=== PATIENT | male | born 1965 | race Caucasian/White ===

== ENCOUNTER 2021-02-20 07:10 | Emergency (ER) | payer OTHER ==
[2021-02-20] MEDS ORDERED: HALDOL 0.5 MG0.5 MG PO (07:20)
[2021-02-20] MEDS ORDERED: VIMPAT200 MG PO ×2 (07:20→07:35)
[2021-02-20] MEDS ORDERED: SERTRALINE HCL25 M1 PO (07:21)
[2021-02-20] MEDS ORDERED: APAP W/CODEINE1 TA2 PO (07:21)
[2021-02-20] MEDS ORDERED: LORAZEPAM 2MG2 MG/M1 INJECTION (07:22)
[2021-02-20] MEDS ORDERED: TUMS200 MG PO (07:25)
[2021-02-20] MEDS ORDERED: ATORVASTATIN CA20 MG PO (07:26)
[2021-02-20] MEDS ORDERED: MIRTAZAPINE7.5 MG PO (07:27)
[2021-02-20] MEDS ORDERED: FUROSEMIDE 20 M20 MG PO (07:27)
[2021-02-20] MEDS ORDERED: ZYPREXA5 MG PO (07:28)
[2021-02-20] MEDS ORDERED: ASA81BEC PO (07:28)
[2021-02-20] MEDS ORDERED: LORAZEPAM 0.50.5 MG PO (07:29)
[2021-02-20] MEDS ORDERED: VITAMIN B-650 M1 PO (07:29)
[2021-02-20] MEDS ORDERED: VITAMIN D31250 MCG PO (07:30)
[2021-02-20] MEDS ORDERED: VENLAFAXINE HCL75 M1 PO (07:31)
[2021-02-20] MEDS ORDERED: KEPPRA XR500 MG PO (07:31)
[2021-02-20] MEDS ORDERED: MILK OF MA400 MG/5 M PO (07:32)
[2021-02-20] MEDS ORDERED: NAPROSYN500 MG PO (07:32)
[2021-02-20] MEDS ORDERED: FLOMAX0.4 MG PO (07:33)
[2021-02-20] MEDS ORDERED: ALPRAZOLAM XR3 MG PO (07:34)
[2021-02-20 14:16] VITALS: BP 123/66
== END 2021-02-20 14:16 ==
LOC: ER 07:10
PROVIDERS: Emergency Medicine
DX: F99 Mental disorder, not otherwise specified (principal); Z20.822 Contact with and (suspected) exposure to COVID-19; E78.5 Hyperlipidemia, unspecified; Z79.899 Other long term (current) drug therapy

== ENCOUNTER 2021-02-20 13:03 | Inpatient (IN) | payer OTHER ==
[~2021-02-20] VITALS: Ht 170.2 cm; Wt 94.8 kg
[~2021-02-20 13:03] MED LIST: ALPRAZOLAM XR3 MG PO; APAP W/CODEINE1 TA2 PO; ASA81BEC PO; ATORVASTATIN CA20 MG PO; FLOMAX0.4 MG PO; FUROSEMIDE 20 M20 MG PO; HALDOL 0.5 MG0.5 MG PO; KEPPRA XR500 MG PO; LORAZEPAM 0.50.5 MG PO; LORAZEPAM 2MG2 MG/M1 INJECTION; MILK OF MA400 MG/5 M PO; MIRTAZAPINE7.5 MG PO; NAPROSYN500 MG PO; SERTRALINE HCL25 M1 PO; TUMS200 MG PO; VENLAFAXINE HCL75 M1 PO; VIMPAT200 MG PO; VITAMIN B-650 M1 PO; VITAMIN D31250 MCG PO; ZYPREXA5 MG PO
--- NOTE | 2021-02-20 19:58 | NUR ---
Pt arrived unit at 1450 via w/c. Diagnosed with danger to self and others. pt is disoriented x4. Assessments completed, vss. Lungs clear, active bowel sound. Pt was confused, no sign of si/hi noted. No c/o pain at this time. pt was anxious and does not follow directions. No edema noted, no wounds noted. Ambulates with unsteady gait. Pt is a fall risk. Fall precaution in place. Pt was assisted with dinner by staff. Consult called to DR Andrade. Fall contract, consent to treat signed via phone by POLY Encarnacion. Medication reconciliation completed, pt belongings documented. BP 123/75, HR 77, O2, 95%, T 97.0, WEIGHT 223LB. No meds administered this shift. At this time pt is in the day room. WILL CONTINUE TO MONITOR.
--- NOTE | 2021-02-20 23:32 | NUR ---
PATIENT RESTING IN RECLINER IN COMMON AREA. PT IS ALERT TO SURROUNDINGS BUT DOES NOT PROPERLY RESPOND TO ANY QUESTIONS REGARDING ORIENTATION. PATIENT WILL NOT KEEP HIS SHIRT ON AND WILL NOT STAY SEATED IN HIS CHAIR WITHOUT FREQUENT REDIRECTION. PT IS UNABLE TO PARTICIPATE IN ANY COMMUNICATION AND SHOWS NO SIGNS THAT ANY DISCUSSIONS HAVE BEEN UNDERSTOOD. PATIENT HAS TRIED TO EAT HIS STYROFOAM CUP BEFORE STAFF WAS ABLE TO REMOVE CUP. WOODS WARDEN CAME TO ASSESS PATIENT FOR HER INITIAL EVALUATIOIN AND PATIENT AGAIN IS UNCOOPERATIVE AND UNABLE TO FOLLOW DIALOGUE. PATIENT OCCASIONALLY WILL TALK OUTLOAD TO HIMSELF BUT IT IS UNDETERMINED WHAT HE IS TALKING ABOUT. HE DOES SEEM TO BE IN A TRANCE AND REPOSNDING TO INTERNAL STIMULI. HIS VITAL SIGNS ARE STABLE AND HE DID TAKE HIS MEDICATIONS IN PUDDING. NO SIGNS OF DISTRESS NOTED AT THIS TIME. WILL CONTINUE TO MONITOR FOR CHANGE IN STATUS.
[2021-02-21 05:50] LABS: CHOLESTEROL 173 mg/dL (<200); HDL CHOLESTEROL 58 mg/dL (>40); LDL CHOLESTEROL 101 mg/dL (<100); SERUM ASSESSMENT Clear; TRIGLYCERIDE 72 mg/dL (<150); VLDL 14 mg/dL (<40)
--- NOTE | 2021-02-21 08:46 | NUR ---
02-21-2021--0845--Attempted call to POLY, patient's Anh. ([phone])--Not in. Message left to return my call to gather more information about the patient
[2021-02-21 09:27] VITALS: BP 120/71
--- NOTE | 2021-02-21 12:06 | NUR ---
02-21-2021--1205--CORRECTION TO PREVIOUS NOTE: His is his DPOA. patient's 's number is ([phone]).
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
--- NOTE | 2021-02-21 15:21 | NUR ---
PATIENT CARE ASSUMED AT 0700, PATIENT SITTING ON THE MACI/CHAIR IN THE COMMON AREA, ALERT TO SELF, PATIENT DOSE NOT RESPOND TO QUESTIONS, UNABLE TO COMMUNICATE OR FOLLOW SIMPLE DIRECTION, PATIENT IS INCONTINENT OF BLADDER AND BOWEL, ASSESSMENT COMPLETED, VSS, ACTIVE BOWEL SOUND WITH SOFT ABDOMEN, BREATH SOUND CLEAR, SKIN INTACT, NO EDEMA NOTED, PATIENT ATE MEAL WITH THE HELP OF STAFF, HE IS MAX ASSIST, IBUPROFEN PRN GIVEN FOR PAIN, NO SI/HI OBSERVED, FALL PRECATION IN PLACE, WILL CONTINUE TO MONITOR PATIENT FOR SAFETY.
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
[2021-02-22 04:06] LABS: GLYCOHEMOGLOBIN (HGB A1C) 5.7 % (4.8-5.6)
[2021-02-22 09:27] VITALS: BP 113/77
--- NOTE | 2021-02-22 09:46 | NUR ---
RESTLESS THIS AM WITH NOTED PSYCHOMOTOR AGITATION-MOVING CONSTANTLY-EITHER PUSHING SELF UP SNF DOWN IN CHAIR-TAPPING FINGERS ON TABLE-TAPPING LEGS ETC. DOES RESPOND TO VOME VERBAL COMMANDS FROM NURSING STAFF BUT ID NONVERBAL SO FAR THIS SHIFT. NO NOTED OR REPORTED S/S OF PAIN-IE NO GRIMACING OR MOANING ,VOCALIZATION OF PAIN NOTED. REQUIRES ASSIST WITH ALL ADLS INCLUDING EATIN-DID EAT 95 PERCENT OF BREAKFAST WITH STAFF ASSIST. OBSERVED TO BE HALLUCINATING -AT TINES CASTING OUT AND REELING IN IF FISHING-WILL ALSO APPEAR TO PICK OBJEVTS OFF OF TABLE-OR AIR AND PUT INTO MOUTH AND CHEW. IS NOTED TO HAVE 1-2 PLUS PEDAL EDEMAE
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
[2021-02-22 20:16] VITALS: BP 134/68
--- NOTE | 2021-02-22 23:03 | NUR ---
At onset of night club manager pt was sleeping in lazaro chair in day room. Pt recieved IM haldol and ativan during day shift. This shift pt is nonverbal. Pt did open his mouth and swallow his pills crushed in pudding, but other than this pt did not respond to staff's questions or requests. Unable to obtain good auscultation of lungs due to pt's position and lack of movement. Breathing was non-labored, regular and O2 saturation was 97%. Unable to assess SI, HI and thought process. Fall precuations are in place. Will continue to monitor for safety and behaviors.
[2021-02-23 09:30] VITALS: BP 119/86
--- NOTE | 2021-02-23 13:06 | NUR ---
PATIENT SITTING ON THE MACI/CHAIR IN THE DAY ROOM, PATIENT IS ONLY ALERT TO SELF, RESTLESS AND TRYING TO STAND UP UNASSIST, PATIENT TOOK MEDICATION CRUSHED WITH PUDDING, INCONTINENT OF BLADDER AND BOWEL BUT USES THE URINAL SOMETIMES, TOOK PATIENT TO LAY DOWN ON THE BED AFTER FIRST GROUP, HE HAD ABOUT THREE HOURS OF SLEEP AND GOT AGITATED WHEN HE GOT UP, TRYING TO CLIMB OUT OF BED, DOCTOR ORDERED LORAZEPAM IM 1MG, PATIENT ATE MEALS WITH ASSISTANCE, BREATH SOUND CLEAR, ACTIVE BOWEL SOUND WITH SOFT AND ROUNDED ABDOMEN, VSS, SKIN INTACT NO EDEMA, NO SI/HI OBSERVED, FALL PRECAUTION IN PLACE. WILL CONTINUE TO MONITOR FOR SAFETY AND BEHAVIOR.
--- NOTE | 2021-02-23 13:23 | NUR ---
HUNTER and Dr. Nicolas spoke with pt's Anh. Dr. Nicolas asked for permission to give pt more meds to slow pt down and reduce aggressive behaviors as he is in a nursing facility. She reluctantly gave her okay and said if possible, she would like for him to be somewhat mobile if possible. HUNTER emailed Anh a [facility] Welcome email. SW team will contact pt during her stay on this unit.
[2021-02-23 19:50] VITALS: BP 91/53
--- NOTE | 2021-02-24 00:08 | NUR ---
At onset of hourly shift manager pt was resting in bed asleep. Pt woke up at approx 2100 and stood up out of bed himself. Staff went to help pt to use the toilet but pt urinated on the bathroom floor instead and had a bowel movement in his brief. It took 4 staff to hold patient so that he could change into a clean brief and pants. Pt was then placed in a gerichair and positioned in the day room. Pt took his meds crushed in pudding. Pt ate a full cup of pudding for an evening snack and 10 ounces of water. Pt then fell asleep in lazaro chair. Pt was observed hallucinating; gesturing to nothing and making nonsensical statements. Unable to assess SI, HI and AVH. Pt may not be oriented to self. Does not respond to questions or prompting. Pt can be resistive to cares. Pt has a rash on the left and right side of his groin. Pt scratches this area at times. RN placed antifungal cream in that area. Pt's buttocks is red as well. Placed barrier cream on buttocks. Fall precautions are in place. Will continue to monitor.
[2021-02-24 09:44] VITALS: BP 121/72
--- NOTE | 2021-02-24 11:47 | NUR ---
PATIENT IS ALERT AND ORIENTED X3, PATIENT IS CALM, PLEASANT AND COOPERATIVE WITH CARE, PATIENT PACES ON THE FOFANA WAY BUT CALM, ASSESSMENT COMPLETED BREATH SOUND CLEAR, ACTIVE BOWEL SOUND, REG HR, VSS, NO EDEMA NOTED, SKIN INTACT, PATIENT TOOK MEDICATION WHOLE, HE AMBULATE ON A STEADY GAIT
--- NOTE | 2021-02-24 11:57 | NUR ---
PATIENT CARE ASSUMED AT 0700, PATIENT SITTING ON THE MACI/CHAIR AWAKE, ALERT TO SELF ONLY PATIENT DOSEN'T RESPOND TO QUESTIONS, HE TOOK MEDICATION CRUSHED WITH PUDDING, HE IS A MAX ASSIST, ASSESSMENT DONE WITH CLEAR BREATH SOUND, ACTIVE BOWEL SOUND WITH SOFT AND ROUNDED ABDOMEN, PATIENT HAS RED RASH ON HIS GROIN AREA, HE IS INCONTINENT OF BLADDER AND BOWEL. PATIENT EAT WITH ASSISTANCE. FALL PRECAUTION IN PLACE, WILL CONTINUE TO MONITOR FOR BEHAVIOR AND SAFETY
--- NOTE | 2021-02-24 14:33 | NUR ---
This nurse was called to the unit for this patient. Patient had been incontinent of stool. Resistant to cares, cursing, swinging arms. Making verbal threats. Dr. Nicolas notified. Order obtained for Haldol 5mg and Ativan 1mg IM stat. Medication provided with staff assist x5. Required 5 staff to clean patient due to agitation and aggressive behaviors.
[2021-02-24 19:14] VITALS: BP 111/67
--- NOTE | 2021-02-25 03:12 | NUR ---
At onset of shift pt was resing in [facility]. Pt recieved an IM Haldol and Ativan on day shift. Pt was somnolent during assessment. RN attempted to administer pt's medication PO twice but pt was sleeping and would not wake up enough to safely swallow. RN held evening medication until pt woke up enough to swallow safely. Pt did not start waking up until after 0300, at which time it was too late to administer HS medications. Pt recieved no HS medications this shift. Fall precautions are in place. Will continue to monitor.
[2021-02-25 09:56] VITALS: BP 105/72
[2021-02-25 13:49] VITALS: BP 105/72
--- NOTE | 2021-02-25 13:53 | NUR ---
Patient care resummed, patient was located in the dayroom in a dayroom upon shift change. Patient alert and disorientated*4, patient presents to be in a good mood today. We have not had any agressive behavior today towards self or staff. Patient has diminished language and abnormal articulation, making assessment more challanging. Patient did responded to some questions but only in yes or no responces. Patient presents with atrophy and a slowed gait. Patient denies SI/HI/AVH/Anxiety/Depression/Pain. INSURANCE COUNSELOR did visualize tactile hallucinations when the patient continued to attempt to grab/reach for objects that were not there, then proceed to try to eat the unknown item. Patients skin in dry with brusing to the Right knuckle, & Right forarm. Lung sounds clear, unlabored and saturations WNL on room air. Abdomen is soft with bowel sounds present in all 4 quadrants. Fall preventions are in place, will continue to monitor patient for safety and behaviors. Meal and Medication compliant.
[2021-02-25 19:24] VITALS: BP 120/74
--- NOTE | 2021-02-26 01:41 | NUR ---
PATIENT REMAINS CONFUSED DISORIENTED AND UNABLE TO FOLLOW SIMPLE COMMANDS OR HOLD A CONVERSATION. HE MUMBLES TO HIMSELF. APPEARS TO BE RESPONDING TO INTERNAL STIMULI. DOES NOT EXHIBIT ANY SIGNS OF AGGRESSION AT THIS TIME. HE DID SLEEP A FEW HOURS IN HIS BED TONIGHT. DOES WELL IN THE RECLINER IN THE COMMON AREA. VSS. NO DISTRESS NOTED. WILL CONTINUE TO MONITOR FOR CHANGES IN PATIENT STATUS.
--- NOTE | 2021-02-26 02:32 | NUR ---
APPROXITAMELY 0200 PATIENT BECAME AGITATED AND BEGAN CURSING OUT LOUD. HE STARTED BANGING HIS FIST ON THE WALL. PATIENT WAS PUT IN A CHAIR AND MOVED TO THE COMMON AREA TO SEE IF HE WOULD CALM DOWN. IN COMMON AREA PATIENT WAS TALKED TO ONE ON ONE BUT NO SIGNS OF UNDERSTANDING WERE YIELDED. PT WOULD NOT STOP SLAMMING HIS HANDS ON THE TABLE. PATIENT WAS MOVED AWAY TO THE TABLE TO FACE THE WINDOW. HIS AGITATION CONTINUED TO INCREASE HE CONTINUED TO YELL ALOUD. NOTIFIED DR. FONG OF PATIENT STATUS. ONE TIME ORDER FOR ATIVAN 1.5 MG IM AND HALDOL 5MG IM ORDERED. IM WAS ADMINISTERED IN THE L DELTOID. PT TOLERATED WELL. WILL CONTINUE TO MONITOR FOR CHANGE IN STATUS.
--- NOTE | 2021-02-26 08:27 | NUR ---
RT Progress Note- Jomar has been present in the milieu throughout each day since his admission. He is present in recreational therapy groups but is passive in participation due to cognitive impairment. RT team has provided Jomar with 1;1 music intervention when he becomes restless. He tolerates music and headphones being applied and has been observed to drum or sway his head to the music. Per his facility report, pt enjoys 90s alternative, smashing pumpkins, and Karla Vandana' music. He has not been violent or aggressive during interaction with recreation therapists. CRYPTOLOGICAL TECHNICIAN and RT team will continue to encourage his progress and offer recreation opportunities as he is able.
[2021-02-26 11:04] VITALS: BP 123/71
[2021-02-26 13:01] VITALS: BP 123/71
--- NOTE | 2021-02-26 13:08 | NUR ---
Patient care resummed, patient was up and in lazaro-chair in the dayroom. Patient is medication and meal compliant. Patient presented to COW TENDER restless, delusional, visual/tactile hallucinations, and cooperative. Patient disoriented*4, lungs clear and unlabored, abdomen soft with bowel sounds present, VSS with O2 lower at 92% on room air. Patient skin is warm and dry with reddness starting to his lower back and buttocks area. Patient responds to assessment questions easier if asked in a yes/no format. Patient will recieve a shower today if he allows staff to do to. Patient is a high fall risk and fall preventions are in place. Will continue to monitor patient for safety and behaviors.
--- NOTE | 2021-02-26 13:46 | NUR ---
[facility] faxed updates to [facility]. Polina team will continue to follow pt during his stay on this unit.
--- NOTE | 2021-02-27 03:15 | NUR ---
PATIENT CONTIUES TO BE ANXIOUS AND IRRITABLE WHEN AWAKE. PATIENT IS ALERT AND ORIENTED TO PERSON ONLY. IS ONLY ABLE TO ANSWER SOME SIMPLE YES AND NO QUESTIONS. DOES NOT SEEM TO APPEAR THAT PATIENT IS ABLE TO COMPREHEND HOW TO USE THE RESTROOM. WHEN SAT UPON THE COMMODE PATIENT POOPED ON THE LID AND WAS STANDING UP BEFORE HE WAS FINISHED. MAKES RANDOM SOUNDS WITH HIS MOUTH. DOES NOT APPEAR TO HAVE ANY PAIN AND DOES NOT APPEAR TO BE IN ANY DISTRESS. WILL CONTINUE TO MONITOR.
[2021-02-27 07:33] VITALS: BP 109/77
--- NOTE | 2021-02-27 09:50 | NUR ---
RESTLESS INITIALLYT THIS AM -SITTING IN DAYROOM WITH PEERS AT BREAKFAST AND IS NOTED TI BE MOVING ALMOST CONSTANTLY-KICKIG ARMS ADN LEGS -GRABBIG OUT AT STAFF AND OTHERS. SPEECH IS PREDOMINATLEY [id number] TO BE UNDERSTOD.
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
--- NOTE | 2021-02-27 13:40 | NUR ---
INCONTINENT LARGE AMOUNT LOOSE LIQIOD STOOL -REQUIRED ASSIST OF 5 NURSING STAFF TO COMPLETE INCONTINENT CARE AND PUT NEW BRIEF ON PT-POSITIONED IN BED OFF BOTTOM TO DECREASE PRESSURE TO BOTTOM.
[2021-02-27 20:22] VITALS: BP 104/64
--- NOTE | 2021-02-28 05:03 | NUR ---
PATIENT REMAIN CONFUSED AND ONLY ACKNOWLEDGES ORIENTATION BY STATING YES WHEN HIS NAME IS CALLED. PATIENT IS ANXIOUS AND MUMBLES INCOHERENTLY. HE IS ABLE TO TAKE HIS MEDICATIONS PRESCRIBED. HE IS INCONTINENT OF BOWEL AND STOOL. DOES NOT INTERACT WITH OTHERS. ALL SAFETY PRECAUTIONS ARE IN PLACE. NO EVIDENCE OF PAIN NOTED. WILL CONTINUE TO MONITOR.
--- NOTE | 2021-02-28 10:20 | NUR ---
POUNDING ON TABEL IN [id number] AT STAFF- SWEAR WORDS ARE THE ONLY COHERENT VERBALIZATIONS SO FAR THIS AM-OTHERWISE SPEECH IS GARBLED AND INCOHERENT. DID TAKE AM MEDICATIONS CRUSHED IN PUDDING-INITIALLY ATTEMPTED TO GIVE WHOLE IN PUDDING BUT ATTEMPTED TO SPIT OUT LARGER PILLS-MULTIPLE SEIZURE MEDICATIONS. DID HAVE LARGE BM IN TOILET-AMBULLATED X3 IN HALLWAY SO FAR THIS AM-ATE 100 PERCENT OF BREAKFAST WITH FEEDING-REQUIRES BEING FED BY STAFF WILL ATTEMPT TO EAT UTENSILS AMD STYRAFOAM WITHOUT SUPERVISION.
[2021-02-28 10:48] VITALS: BP 112/93
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
--- NOTE | 2021-02-28 17:53 | NUR ---
incontinent of urine x3 this pm and incontinent care provided with 3-4 staff q 2 hours. is combative each time incontinent care provided.ambulates in hallway with sba x1-2 staff and tolerates well but does continue to be impulsive-yanking and pulling hard on arms of staff-refusing to let go-angry facial expression with grittted teeth and cursing-tylenol 650mgpo prn at 1800 for possible pain.
[2021-02-28 19:50] VITALS: BP 104/68
--- NOTE | 2021-03-01 04:49 | NUR ---
PATIENT CARE WAS RESUMED AT 1900. HE IS ALERT SITTING IN THE DAY AREA ON AMCI-CHAIR. POOR COMMUNICATIONS AND HE DENIES PAINS. TOOK HIS MEDS WHOLE AND INCONTINIET OF BOWEL AND BLADDER. HE DENIES HI/SI/AVH. Q 12MINUTES CHECKS ARE ACTIVE. BS ACTIVE AD IS SOFT NON TENDER. LUNGS ARE CLEAR.
[2021-03-01 09:42] VITALS: BP 111/58
--- NOTE | 2021-03-01 10:00 | NUR ---
Nutrition follow up: ST downgraded diet to mech soft/chopped following bedside swallow 02/23. ST rec 100% supervision at all meals. PO intake remains good with 75-100% intakes documented. No recent weight, last weight 02/20. Last BM 02/28. Remains low nutrition risk.
[2021-03-01 11:23] LABS: HEMATOCRIT 38.3 % (42.0-52.0); MCHC 31.4 g/dL (28.0-37.0); MCV 76.5 fL (80.0-100.0); RDW 14.5 % (10.5-14.5)
[2021-03-01 11:37] LABS: CALCIUM 9.1 mg/dL (8.5-10.1); CREATININE 1.1 mg/dL (0.7-1.3); POTASSIUM 3.8 mmol/L (3.5-5.1)
--- NOTE | 2021-03-01 13:01 | NUR ---
TRICIA from Christina of the [facility] asking for updates. Reviewed weekend for behaviors and Nurse Fire Equipment Inspector updated Christina on Medications. David yeeative - her # is [phone]
[2021-03-01 16:29] VITALS: BP 111/58
--- NOTE | 2021-03-01 18:34 | NUR ---
Patient care resummed, patient was up and in the dayroom upon shift change. Patient was in a lazaro:chair laying comfortably. Patient presents to CHIEF TECHNICIAN X RAY with communication difficulties, noted responding best by yes/no questions. Patient A&O*1, lung sounds are clear and unlabored, abdomen is soft with bowel sounds present. Patient is medication and meal compliant. Patient was assisted by staff and walked with a walker and gait belt every 2.5/3 hours. Patient denies pain, but is unable to fully communicate SI/HI/AVH. FLACC scale used along side Numeriac for pain evaluations. Patient noted having a bowel movement today by staff. Patient began coming more aggitated, combative with staff. Noted punching hand into fist, hitting table, and kept getting up causing a danger to himself by falling over chair. CHIEF TECHNICIAN X RAY retreved a telephone order from for a lab:nga for safety and 1:1 supervision alongside the order. Will continue to monitior patient for safety and behaviors. Fall preventions are in place/
[2021-03-01 19:00] VITALS: BP 112/74
--- NOTE | 2021-03-01 22:39 | NUR ---
PATIENT HAS BEEN OUT IN DAYROOM SINCE BEGINNING OF SHIFT. PATIENT IS MEDICATION COMPLIANT AND TOOK MEDS CRUSHED IN PUDDING. LAPBUDDY WAS RELEASED AT 2014 PATIENT WAS SLEEPING. NO NEGATIVE BEHAVIORS NOTED.
[2021-03-02 09:24] VITALS: BP 103/76
[2021-03-02 09:44] VITALS: BP 103/76
--- NOTE | 2021-03-02 10:12 | NUR ---
RESUMMED CARE FROM OVERNIGHT SHIFT THIS AM, PATIENT SITTING IN DAY ROOM QUIET IN MACI CHAIR. PATIENT ALERT TO SELF ONLY PATIENT ATE BREAKFAST HE IS A FEEDER. TOOK MEDICATION CRUSHED IN APPLESAUCE WITHOUT INCIDENCE. PATIENT UNABLE TO TELL ME ABOUT SI/HI/VH; I NOTICED PATIENT REACHING IN THE AIR FOR THINGS THAT ARE NOT THERE. PATIENTS ABDOMEN SOFT BOWEL SOUNDS PRESENT PATIENTS LUNGS CLEAR. PATIENT LIKES TO TRY TO STAND UP IN MACI CHAIR/WE WILL WALK WITH PATIENT TO STRETCH HIS LEGS. PATIENT HAS NOT DISPLAYED AND AGGRESSIVE BEHAVIORS AT PRESENT. WILL CONTINUE TO MONITOR PATIENT FOR SAFETY AND BEHAVIORS.
[2021-03-02 20:05] VITALS: BP 112/71
--- NOTE | 2021-03-02 21:31 | NUR ---
PATIENT HAS BEEN IN DAYROOM THIS EVENING AND TOOK HS MEDICATION THAT WERE CRUSHED IN PUDDING. PATIENT HAS HAD NO NEGATIVE BEHAVIORS THIS EVENING.
[2021-03-03 11:18] VITALS: BP 110/63
[2021-03-03 19:20] VITALS: BP 110/63
--- NOTE | 2021-03-03 19:22 | NUR ---
Assumed pt care at 0700. Pt was disoriented x4. Assessments completed, vss. Took meds crushed, no difficulty noted, Ambulates with a Ghada chair. No sign of acute distress noted on pt. No sign of si/hi noted. Pt is a fall risk, Fall precaution in place. Pt is a Max assist with care. Incontinent of bowel and bladder. Pt occasionally gets restless and trys to get up. Pt was redirected. No IM meds administered this shift. At this time pt is in the day room resting. Will continue to monitor.
--- NOTE | 2021-03-04 00:03 | NUR ---
PATIENT OUT IN DAY ROOM THIS EVENING, COOPERATIVE WITH STAFF, COMPLIANT WITH HS MEDICATION CRUSHED IN APPLESAUCE. PATIENT HAD NO NEGATIVE BEHAVIORS.
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
--- NOTE | 2021-03-04 15:26 | NUR ---
PT UP TO CHAIR FOR ALL MEALS. DID NOT PARTICIPATE IN GROUP ACTIVITIES. PT AFEBRILE, ADEQUATE UOP, NO BM, FAIR APPETITE. PT AND HAVE BEEN THOUROUGHLY UPDATED AND EDUCATED ON PT CONDITION AND POC. PT SLOWLY PROGRESSING TOWARDS POC.
[2021-03-04 20:00] VITALS: BP 121/52
[2021-03-04 20:01] VITALS: BP 121/52
--- NOTE | 2021-03-05 03:45 | NUR ---
[facility] WAS RESUMED AT 1900. HE WAS AT THE DINING AREA ON THE MACI CHAIR. UNABLE TO VERABLIZE HIS CONCERNS. LUNGS ARE CLEAR BS ACTIVE X4 QUADS.MEDS WERE GIVEN IN PUDDING CRUSHED. HE IS INCONTINET OF BOWEL AND BLADDER. HE IS ON MACI-CHAIR AND CHAIR IS ALARMED AND LOCKED. YELOW TOP AND SOCKS ARE ON. STAFF CONTINUES TO MONITOR.
[2021-03-05 10:26] VITALS: BP 123/96
--- NOTE | 2021-03-05 15:44 | NUR ---
Assumed pt care at 0700. pt was disoriented x4. Assessments completed, vss. Lungs clear, active bowel sound. No sign of si/hi noted, no c/o pain at this time. Took meds crushed, no difficulty noted. Ambulates with a Ghada chair. Incontinent of bowel and bladder. Assisted with meals this shift. Cooperative with care and assessments. Pt is a fall risk, fall precaution in place. At this time pt is in the day room resting, Will continue to monitor.
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
[2021-03-05 20:35] VITALS: BP 90/58
[2021-03-05 21:00] VITALS: BP 103/60
--- NOTE | 2021-03-06 00:42 | NUR ---
ASSUMED PT CARE THIS PM. PT IS ALERT AND ORIENTED TO SELF. PT WAS ASLEEP THROUGH THE SHIFT BUT EASY TO AROUSE AND EASILY FOLLOWS COMMANDS WITHOUT OPENING EYES. PT TOOK MEDS WITHOUT ISSUES. NO FORM OF AGITATION WAS OBSERVED. NO VISIBLE SIGN OF DISTRESS WAS NOTED. FALL PRECAUTIONS IN PLACE. WILL CONTINUE TO MONITOR.
[2021-03-06 10:28] VITALS: BP 121/57
[2021-03-06 11:40] VITALS: BP 134/98
--- NOTE | 2021-03-06 12:35 | NUR ---
Alert and orientated to name only. Denies SI/HI. Laughing and smiling, talking to himself with confused speech. Reaching for unseen objects. Breath sounds clear. Reg HR auscultated. Color pink with brisk capillary refill and palpable peripheral pulses. +1 pedal edema. Brief dry. Active bowel sounds over soft, rounded abdomen. No documented BM since 03/02. Milk of magnesia given PO without difficulty. Able to stand and take several steps with steady gait. Currently sitting at table without s/o distress.
[2021-03-06 19:32] VITALS: BP 124/83
[2021-03-07 07:04] VITALS: BP 142/96
--- NOTE | 2021-03-07 10:30 | NUR ---
RT PROGRESS NOTE - Jomar has been present in the [facility] area since his admission. In reference to his progress note on March 29, 2021, his status has been the same.
[2021-03-07 12:26] VITALS: BP 142/96
--- NOTE | 2021-03-07 12:32 | NUR ---
Patient care resummed, patient sitting in dayroom in Ghada:chair relaxing comfortably. Patient is alert this morning, presents pleasent, and cooperative. Patient denies being in pain, but patient minimally coomunicative which made determining HI/SI unassessable. Patient does tend to responded better to TELECOMMUNICATIONS REPAIRER when used Yes/No questions. VSS stable but blood pressure noted to be hypertensive. Throughout the day patient became sleepy, but was easily awakened. Patient termed disoriented*4 but alert to his name when called by it. Lungs clear and unlabored, abdomen is soft and bowel sounds are present*4. No obvious signs of distress are noted. Fall preventions are in place will continue to monitor patient for safety and behaviors.
[2021-03-07 20:50] VITALS: BP 142/96
--- NOTE | 2021-03-08 02:26 | NUR ---
PATIENT UP IN MACI CHAIR SITTING AT A TABLE. HE IS CALM AND COOPERATIVE MOST OF TIME BUT OCCASIONALLY BANGS ON THE TABLE AND SHOUTS OUT PROFANITY IF YELLING AT SOMEONE. NOT SURE IF AVH. PATIENT GOT HIS RIGHT LOWER ANKLE CAUGHT IN CHAIR TONIGHT. TWO SMALL ABRAISIONS ON ANKLE WERE CLEANED WITH NORMALSALINE AND FOAM DRESSINGS APPLIED TO AREA. A FOLDED BLANKET PLACED IN AREA WHERE ANKLE GOT CAUGHT TO PREVEN LEG FROM FALLING DOWN IN THAT AREA AGAIN. PATIENT IS RESISTANT TO INCONTINENT CARES AND ANY REPOSITIONING. HE DID TAKE HIS HS MEDS WHOLE IN PUDDING. HE HAD PUDDING, WATER, AND YOGURT FOR AN HS SNACK TONIGHT. PT RESTING COMFORTABLY IN CHAIR. PATIENT DOES HAVE CHRONIC 2-3+ EDEMA IN RIGHT FOOT AND ANKLE. ROUTINE ROUNDS TO ASSESS SAFETY AND STATUS OF PATIENT. NO SIGNS OF SI/HI. PATIENT WITH MACI CHAIR LOCKED IN PLACE AND CHAIR ALARM IN PLACE AND ON. CONTINUING TO MONITOR. PATIENT.
[2021-03-08 07:15] VITALS: BP 103/68
--- NOTE | 2021-03-08 10:07 | NUR ---
Alert and happy this AM. Orientated to name only. Babbling with confused speech and reaching for unseen objects. No speech/behavior suggestive of SI/HI. Does try to get out of recliner at times. Able to stand and bear wt and take several steps with assistance. Breath sounds clear. Reg HR auscultated. Color pink with brisk capillary refill and palpable peripheral pulses. Brief and pad saturated with yellow urine. Active bowel sounds over soft, rounded abdomen. Compliant with meds, took whole in applesauce.
[2021-03-08 10:14] VITALS: BP 103/68
--- NOTE | 2021-03-08 12:54 | NUR ---
Nutrition followup: pt continues to eat 100% most meals on mech chopped diet per ST. Noted A1C 5.7. on lasix, vitamin D. No weight to assess since 02/20. BM 03/06. Low nutrition risk.
--- NOTE | 2021-03-08 12:55 | NUR ---
03-08-2021--1230--Gathered new notes H&P and med list from 03-05-2021 and sent to Mera. Called her on the phone to get her fax number ([phone]) Faxed packet to her and requested she send them to the [facility] where the had openngs.
[2021-03-08 20:20] VITALS: BP 120/74
--- NOTE | 2021-03-08 22:03 | NUR ---
PATIENT HAS BEEN SLEEPY SINCE BEGINNING OF SHIFT BUT DID WAKE LONG ENOUGH TOO TAKE HS MEDICATION. AND THAN FELL BACK A SLEEP. PATIENT IS COMPLIANT WITH CARES AND HAS NO NEGATIVE BEHAVIORS.
--- NOTE | 2021-03-09 14:33 | NUR ---
PT ALERT TO SLEF ONLY. VSS. PT CANNOT ANSWER ASSESSMENT QUESTIONS. PT TOLERATES MEDS AND MEALS. PT ATTENDED GROUPS. PT INTERACTS WELL WITH STAFF AND PEERS. WILL CONTINUE TO MONITOR.
[2021-03-09 19:59] VITALS: BP 109/82
--- NOTE | 2021-03-09 22:36 | NUR ---
PATIENT WAS UP AND WALKING WITH STAFF AT BEGINNING OF SHIFT. PATIENT HAS BEEN MEDICATION COMPLIANT, WITHS MEDS BEING CRUSHED IN APPLESAUCE, AND REMAINS PLEASANTLY CONFUSED AND ONLY MILDLY RESISTANT TO CARES. PATIENT HAS HAD NO NEGATIVE BEHAVIORS.
[2021-03-10 11:02] VITALS: BP 146/82
--- NOTE | 2021-03-10 13:22 | NUR ---
PITO PIÑA BEEN UP IN [facility], AND OUT ON THE UNIT, SITS IN GROUP, BUT DOES NOT ACTIVELY PARTICIPATE. ALL MEDICATIONS GIVEN CRUSHED IN YOGURT, WELL TOLERATED. 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 INCONTINENT CARE PROVIDED PER STAFF. PATIENT REQUIRES STAFF ASSIST TO FEED. NO AGITATION OR AGGRESSIVE BEHAVIOR NOTED, AFFECT IS CALM, MOOD IS EUTHYMIC. NO SIGN OF ACUTE DISTRESS NOTED AT THIS TIME, WILL MONITOR FOR SAFETY.
--- NOTE | 2021-03-10 15:58 | NUR ---
03-10-2021--1600--Call to Connie at [facility] and told her I was going to fax information to her re: patient. Verified fax number [phone]. Grant phone number is [phone]. 03-10-2021--1605--Faxed information to Connie. called earlier and stated she was going to visit [place] and they needed information on him.
[2021-03-10 19:57] VITALS: BP 134/111
--- NOTE | 2021-03-11 05:26 | NUR ---
03-10-21 CARE TRANSFERRED 1900 OBSERVED PT SITTING IN RECLINER IN DAY ROOM. PT AAOX1, B/P ELEVATED RANDELL TAKEN 130/88, VSS, RR EVEN AND NONLABORED ON RA. DURING MEDICATION PT HAD NO DIFFICULTIES AND ATE SEVERAL BITES OF PUDDING AND 240ML OF WATER AT THIS TIME. PT HAS REMAINED CALM AND COOPERATIVE. PT WILL CONTINUE TO BE MONITOR PER [facility] PROTOCOL.
[2021-03-11 09:50] VITALS: BP 117/63; BP 137/83
--- NOTE | 2021-03-11 11:44 | NUR ---
Alert and playful this AM ambulating with SOLDERING TECHNICIAN. Able to state name only. Occassionally reaching for unseen objects. Tapping table and has confused speech. Calm and compliant, redirectable. Breath sounds clear. Reg HR auscultated. Color pink with brisk capillary refill and palpable peripheral pulses. Brief and pad saturated with yellow urine. Active bowel sounds over soft rounded abdomen. BM per toilet per SOLDERING TECHNICIAN. Gait slightly unsteady, needs assist when ambulating.
[2021-03-11 19:36] VITALS: BP 125/87
[2021-03-11 19:37] VITALS: BP 116/71
--- NOTE | 2021-03-12 03:41 | NUR ---
care assumed at 1900,patient was in the dinning room asleep on the recliner. patient was had to arouse to take hs meds or push fluids, meds meds not given d/t patient being sedated. patient incontient this shift pericare and barrier cream applied as needed. fall precaution in place. patient in bed asleep at this time breathing regular and unlaboured.
--- NOTE | 2021-03-12 07:26 | NUR ---
03-11-2021--1500--Faxes for placement sent to the following: Silvia More[place]; [place]; [facility]; [place] [facility]; [place]; [facility]; [facility]; [facility]; [facility]; [facility]; [facility]; [facility]; [facility]; [facility]; Wilder Mormon; [place]; [facility]; Rosa De La Garza; Rosa Wesley; Rosa Reynolds; [facility]; [facility]; [facility]. 03-12-2021--8486--Faxes sent to the following facilities: Donaldo [place]; Kaylee Lai; [facility]; [facility]; [facility] ; [facility]; [facility]. Waiting for responses--will send more packets this date in an attempt to find Placement.
[2021-03-12 07:55] VITALS: BP 139/114
--- NOTE | 2021-03-12 11:03 | NUR ---
Very restless this AM. Alert to name. Denies SI/HI. Reaching for unseen objects. Compliant with meds given crushed in apple sauce. Breath sounds clear. Reg HR auscultated. Color pink with brisk capillary refill and palpable peripheral pulses. +1 edema in feet. Brief dry. Active bowel sounds over soft, rounded abdomen. Scrapes on R leg cleaned with NS, zeroform and abd applied and wrapped with kerlix. Buttocks slightly reddened.
[2021-03-12 12:00] VITALS: BP 112/85
--- NOTE | 2021-03-12 12:55 | NUR ---
03-12-2021--1137--Zoom meeting wohenry patient and freya for [place] and other facilities. Patient was in a very good mood and was walking, singing and "dancing". He did vedy well on camera.
[2021-03-12 21:08] VITALS: BP 102/72
--- NOTE | 2021-03-13 05:05 | NUR ---
03-12-21 CARE TRANSFERRED 1900 OBSERVED PT SITTING IN RECLINER IN DAY ROOM. LATER PT AAOX1, VSS, RR EVEN AND NONLABORED ON RA. PT BECOMES AGITATED DURING CARES, BUT EASILY SETTLES DOWN AFTER. PT NON-VERBAL BUT WILL RESPOND TO HIS NAME. DURING MEDICATION ADMIN, PT HAD NO DIFFICULTIES TAKING MEDICATION IN PUDDING, WHILE TAKING KEPRRA, PT SPIT A FOUNTAIN. 2ND ATTEMPT PT PROMPTED TO SWALLOW AND PT HAD NO DIFFIUCLTIES. PT BED WAS ADJUSTED FOR COMFORT. PT WILL CONTINUE TO BE MONITOR PER [facility] PROTOCOL.
[2021-03-13 11:07] VITALS: BP 120/72
[2021-03-13 11:15] VITALS: BP 98/70
--- NOTE | 2021-03-13 14:36 | NUR ---
RESUMMED CARE FROM OVERNIGHT SHIFT THIS AM, PATIENT IN DAY ROOM SITTING QUIET. PATIENT ALERT ORIENTED TO SELF ONLY, PATIENT ATE BREAKFAST TOOK MEDICATION CRUSHED. PATIENT UNABLE TO TELL ME ABOUT SI/HI/AH/VH DUE TO COGNITIVE DO. PATIENTS ABDOMEN SOFT BOWEL SOUNDS PRESENT PATIENTS LUNGS CLEAR. PATIENT HAS NOT DISPLAYED ANY BEHAVIORS, WE WALKED PATIENT DOWN THE FOFANA TO STRETCH HIS LEGS. WILL CONTINUE TO MONITOR PATIENT FOR SAFETY AND BEHAVIORS.
[2021-03-13 20:27] VITALS: BP 154/104
[2021-03-13 20:50] VITALS: BP 130/78
--- NOTE | 2021-03-14 04:23 | NUR ---
03-13-21 CARE TRANSFERRED 1900 OBSERVED PT SITTING IN DAY ROOM IN RECLINER. LATER PT AAOX1, VSS, RR EVEN AND NONLABORED ON RA. PT PLEASANTLY CONFUSED, CALM AND COOPERATIVE. ATE 100% OF HS SNACK. DURING MEDICATION ADMIN PT HAD NO DIFFICUTLIES TAKING MEDICATION IN APPLESAUCE AND ATE 75% OF CUP. NOTED PT DRESSING IN LE CLEAN, DRY AND INTAKE; PT HAS REDNESS IN BUTTOCKS AREA, BARRIER CREAM APPLIED. PT WILL CONTINUE TO BE MONITOR PER [facility] PROTOCOL.
[2021-03-14 10:19] VITALS: BP 144/86
--- NOTE | 2021-03-14 14:04 | NUR ---
Patient has been restless at times this shift. This morning before breakfast, patient was restless/anxious, trying to get out of lazaro-chair. One on one provided, effective. Patient has had a great appetite and fluid intake. Fluids are being encouraged. Patient walked around the unit with assistance. After walking, patient seemed to be having some back pain, when asked if he was hurting he said yes. PRN Tylenol given around 1100, was partially effective. Patient has been sitting in the day room, in his lazaro-chair. He has not had a BM this shift, but has been incontinent of urine several times. Patient has been having abnormal mouth movements, unsure if due to dry mouth, fluids have been encouraged frequently. Will continue to monitor patient.
[2021-03-14 19:35] VITALS: BP 101/64
--- NOTE | 2021-03-15 03:16 | NUR ---
03-14-21 CARE TRANSFERRED 1900 [id number] PT SITTING IN DAY ROOM IN RECLINER AT TABLE. LATER PT AAOX1, VSS, RR EVEN AND NONLABORED ON RA, OBSERVED NO S/S OF PAIN AND ZERO SI/HI BEHAVIORS. PT CALM AND COOPERATIVE. DURING MEDICATION ADMIN PT HAD NO DIFFICUTIES TAKEN MEDICATIN CRUSH IN APPLESAUCE AND PT ATE 25% OF CUP; PT HAD NO DIFFICUTIES WITH LIQUID KEPPRA. PT WAS ASSISTED TO BED AND LEFT OPEN TO AIR, PT HAS REDNESS IN BUTTOCKS AREA, PERIAREA WAS CLEANED WITH SOAP AND WATER AND BARRIER CREAM APPLIED. PT BED ADJUSTED FOR COMFORT, LOWEST POSITION, LOCKED AND ALARM SET. PT WILL CONTINUE TO BE MONITOR PER [facility] PROTOCOL.
[2021-03-15 10:50] VITALS: BP 131/87
--- NOTE | 2021-03-15 11:02 | NUR ---
Nutrition followup: Pt continues to eat well, 100% most meals on mech altered chopped diet per ST. Recent weight showing a possible 6# weight decline in 3 weeks. Not concerning and actually beneficial considering overweight status. Continues on lasix, vitamin D supplementation. Ensure pudding at lunch. BM 03/12. Low nutrition risk.
--- NOTE | 2021-03-15 11:28 | NUR ---
RESTLESS AT TIMES IN RECLINER-WILL RAISE BODY OUT OR CHAIR ON STRAIGHT ARMS AND ATTEMPT TO CRAWL OVER ARM OF CHAIR-REQUIRES 3-4 STAFF TO ASSIST WHEN TOILETING HE WILL RESIST HAVING BRIEF AND PANTS CHANGED AND WHEN WASHCLOTH /WIPES USED WILL ATTEMPT TO STRIKE OUT. NOTED TO HAVE INCREASED RESPIRATORY RATE AND FACIAL GRIMACING WITH TOILETING WHEN GOING FROM STANDING TO SITTING-DR MEDINA ON UNIT AND NOTIFIED OF PAIN-NO NEW ORDERS RECEIVED. REQUIRES FEEDING AT MEALS BUT APPETITE IS GOODAND TAKES LARGE QUANTITIES OF WATER WHEN OFFERED.
[2021-03-15 19:25] VITALS: BP 99/55
--- NOTE | 2021-03-15 22:30 | NUR ---
At onset of awake overnight counselor pt was resting in bed asleep. This shift pt was oriented to self. Pt spent the evening sleeping, but pt did wake up to take his meds. Pt was compliant with taking meds crushed in pudding and liquid oral keppra was mixed with sprite. Pt was compliant with vital signs. Pt was moslty nonverbal this shift. Pt did respond "yeah" when asked if he wanted more sprite. Pt made no eye contact with television script writer. Fall precautions are in place. Will continue to monitor.
--- NOTE | 2021-03-16 08:03 | NUR ---
03-16-2021--0253--Email from [facility] stating that other nursing homes wanted more information even though "I don't think they will take him". Sent fax to Massiel: Janeth (fax: [phone]). Fax completed.
[2021-03-16 10:13] VITALS: BP 123/83
--- NOTE | 2021-03-16 10:29 | NUR ---
03-16-2021--1030--Call from Joselyn from [place], [place]. [phone]. They are interested in patient. Will call rock and let her know.
--- NOTE | 2021-03-16 10:31 | NUR ---
03-16-2021--0504--Call to Adi to advise her of ointerest facility in [place], [place] has in her and placement.
--- NOTE | 2021-03-16 11:33 | NUR ---
03-16-2021--1030--Call to DPOA, and told her a facility in [facility]. was interested in having Jomar. They will call me back. Facility number ([phone]) Joselyn.
--- NOTE | 2021-03-16 12:23 | NUR ---
Non verbal this AM. Happy and smiling and babbling but does not respond to orientation questions. No speech or behavior suggestive of SI/HI. Restless at times but responsive to redirection. Breath sounds clear. Reg HR auscultated.
[2021-03-16 20:41] VITALS: BP 154/100
[2021-03-16 21:30] VITALS: BP 128/84
--- NOTE | 2021-03-17 04:47 | NUR ---
03-16-21 CARE TRANSFERRED 1899 OBSERVED PT RESTLESS SITTING IN RECLINER IN DAY ROOM. LATER PT AAOX1, SPONTANEOUS VERBAL WITH CUSSING, PT OFTEN NON-VERBAL. OBSERVED NO SI/HI BEHAVIOR. PT WAS VERY RESTLESS AND SITTING ON BACK OF RECLINER, PT WAS COOPERATIVE WHEN REPOSITION AND THROUGHOUT NURSING ASSESSMENT. UPON REVIEW OF VS B/P WAS ELEVATED, RANDELL B/P LEFT ARM 128/84, APICAL PULSE 88, HT RR, RR 16 ON RA. LATER PT WAS ASSISTED INTO BED AND HAD HEAVY YELLOW URINE BRIEF, PT WAS CLEANED WITH SOAP AND WATER, AND BARRIER CREAM APPLIED R/T REDNESS IN BUTTOCKS AREA. PT WAS LEFT OPEN TO AIR ON CLEAN CHUX. PT WILL CONTINUE TO BE MONITOR PER [facility] PROTOCOL.
[2021-03-17 10:43] VITALS: BP 127/82
--- NOTE | 2021-03-17 11:55 | NUR ---
03-17-2021--1155--Call from [facility]. They declined stating they cannot meet his needs.
--- NOTE | 2021-03-17 15:54 | NUR ---
PATIENT WAS UP NAKED STANDING IN HIS ROOM WHEN CARE ASSUMED. STAFF ASSISTED IN GETTING HIM DRESSED, AND ASSIST HIM IN GERICHAR TO DAYROOM. PATIENT TOOK MORNING MEDICATION CRUSHED IN PUDDING WITHOUT DIFFICULTY. PATIENT EATS MEALS, AND DRINKS FLUID WELL WITH STAFF ASSIST IN FEEDING. PATIENT TOILETED EVERY TWO HOURS BY STAFF, HE WAS CONTINENT, SAT IN COMODE WITH STAFF ASSIST, HAD LARGE SOFT BOWEL MOVEMENT THIS MORNING. BARRIER CREAM APPLIED TO WILLAM/GROIN AREA PER STAFF. PATIENT IS ABLE TO AMBULATE A SHORT DISTANCE, STAFF WALKED WITH PATIENT FOR A SHORT TIME. DRESSING CHANGED TO RIGHT CALF WOUND AREA, NO DRAINAGE NOTED, AREA HEALING WELL. PATIENT IS RESTLESS, ATTEMPTING TO GET OUT OF GERICHAIR CONTINOUSLY, STAFF SITTING AT HIS SIDE WITH CONSTANT REDIRECTION. PATIENT IS NOT ABLE TO APPROPRIATELY RESPOND TO ASSESSMENT QUESTIONS DUE TO COGNITIVE IMPAIRMENT. NO AGGRESSION OR AGITAION NOTED AT THIS TIME. NO SIGN OF ACUTE DISTRESS NOTED, WILL CONTINUE TO REDIRECT, AND MONITOR FOR SAFETY.
[2021-03-17 19:15] VITALS: BP 103/72
--- NOTE | 2021-03-18 04:35 | NUR ---
03-17-21 CARE TRANSFERRED 0. LATER PT PRESENTED DROWSY AND LETHARGIC, PT LUNGS CLEAR, HT RR, ABD SOFT AND ACTIVE. PT REPOSITION FOR COMFORT. NO S/S OF PAIN AND OBSERVED NO SI/HI BEHAVIORS. DURING MEDICATION ADMIN PT WAS DROWSY BUT HAD NO DIFFICULTIES AND COMPLETED APPROXIMATELY 10% OF PUDDING CUP. PT WAS REPOSITIOJ FOR COMFORT, BED IN LOW POSITION, LOCKED AND ALARM ON. PT WILL CONTINUE TO BE MONITOR PER [facility] PROTOCOL.
--- NOTE | 2021-03-18 12:22 | NUR ---
[phone]--1200--Call with Doctor to darius . [phone]--They do not have memory care. notified. Worried about giving an answer about a new job in [place]. talking about getting the media involved and has been talking to senators, etc.
--- NOTE | 2021-03-18 13:02 | NUR ---
Alert and orientated to name only. Happy, slightly restless trying to get out of chair. Very redirectable. No speech/behavior suggestive of SI/HI. Breath sounds clear. Reg HR auscultated. Color pink with brisk capillary refill and palpable peripheral pulses. Incontinent of large amt yellow urine. Active bowel sounds over soft, rounded abdomen. Last BM 03/17. Wound on R calf improved from 2 days ago. Cleaned with wound cleanser and dressed with optfoam. Ambulating with staff t/o AM, no s/o distress.
[2021-03-18 17:37] VITALS: BP 110/69
[2021-03-18 20:12] VITALS: BP 108/73
[2021-03-18 22:35] VITALS: BP 108/73
--- NOTE | 2021-03-18 23:25 | NUR ---
Assumed care at 1500. Pt was in activity area, and was restless during this time. This staff ambulated pt so that pt could walk and get out some of his restlessness. Pt was walked with gait belt and staff assist. Pt presented happy when able to ambulate, but did not want to stop ambulating for group or rest. Pt became agitated when asked to sit in chair, moving hands and arms, and trying to move staff away from chair. Pt was toileted during this time as precautionary measure, as pt is unable to express needs. Yellow urine present at this time and voided into commode. Pt changed, and percare given along with sitting bath. Pt declined to sit at [facility] upon completion of the former, and started to once again wave arms agitatedly, and grunt. Pt refused to walk with staff, and became more aggressive, pulling at gait belt, and trying to go to other rooms. PRN medication was given at this time. Toradol 1x order given as well to help with pain due to pt grunting. Pt was ambulated for 20 more minutes after these injections until pt became more relaxed. Pt was then led to [facility], and repositioned. Pt slept during this time. During dinner medications, pt took these crushed with icecream but declined to eat dinner, falling asleep after medication was given. Pt was then taken to room to rest, and positioned in bed, with the head of the bed slightly elevated. Evening ativan was given at 2000 due to pt being sleepy and bp was taken prior to administration. All vitals within normal range. Pt took rest of medications shortly after this; these were crushed in applesauce. Pt could not answer any assessment questions during this time, and was disoriented x4. Pt was not able to answer questions about depression and anxiety, suicidal or homicidal intent, or hallucinations. Pt did not appear to be in any pain during this time, and was sleeping shortly after medication administration. Pt was repositoned, with head on pillow and legs elevated. No further concerns.
[2021-03-19 07:30] VITALS: BP 126/101
--- NOTE | 2021-03-19 12:59 | NUR ---
Alert and orientated to name only. Confused babbling. Happy and laughing at times. Wants to walk frequently, slightly resistant to sitting down in AM, much less directable at approximately 12 noon. Episode of aggressiveness reported by CUSTOMER SALES DISTRIBUTOR, ambulated for approximately 20 min. Happy and laughing but also hit window several times with fist playfully. Restless. Stated he wanted to go to quiet room. 5 mg Haldol given PO per PRN order. Breath sounds clear. Reg HR auscultated. Color pink with brisk capillary refill and palpable peripheral pulses. Incontinent of large amt yellow urine. Large stool per report. Active bowel sounds over soft, rounded abdomen. Ambulates under staff supervision with slightly unsteady gait.
[2021-03-19 17:51] VITALS: BP 127/82
[2021-03-19 20:09] VITALS: BP 95/41
--- NOTE | 2021-03-20 05:15 | NUR ---
Assumed care of patient at 1900. Patient calm et cooperative this shift. VSWNL. Health assessment with no abnormalities noted at present time. Took medications crushed in pudding without difficulty. Unable to assess SI/HI/AVH due to cognitive deficit but does not display any signs of acute emotional distress at present time. Ambulates with assistance of lazaro-chair. Currently resting in bed with eyes closed. Will continue to monitor per unit protocol.
[2021-03-20 10:32] VITALS: BP 139/83
[2021-03-20 14:24] VITALS: BP 139/83
--- NOTE | 2021-03-20 18:24 | NUR ---
Assumed pt care this am. Client was in activity area resting at this time. Client presented slightly agitated and was trying to get up from his chair. Client was walked with a gait belt for several minutes to relieve tension and placed back into chair. Client presented oriented to self only. Client was unable to answer questions about depression and anxiety, si/hi, and audio and visual hallucinations at this time, instead yelling "bebebebebe" and laughing. Nonverbal pain assessment showed no pain aside from restlessness. Client took all medications crushed in pudding at this time. Due to client continously trying to get up, prn 0.5 ativan was administered with his 0.5 scheduled ativan. FINISH PRODUCTION MANAGER Ady increased doses of seroquel due to removal of client's prn injection. After dose of 1mg total of ativan, client calmed down and was able to sit still, yelling less and becoming less agitated. Client took all remaining medications today without issues, with dinner medications crushed in icecream, and oral syringe by mouth. No further concerns at this time.
[2021-03-20 19:54] VITALS: BP 115/93
[2021-03-20 21:45] VITALS: BP 89/63
[2021-03-21 00:14] VITALS: BP 106/65
--- NOTE | 2021-03-21 04:00 | NUR ---
Assumed care of patient at 1900. Pt calm et cooperative most of shift. Pt did have some restlessness and became fidgety and non-responsive to redirection just prior to going to bed. VSWNL. Health assessment with no abnormalities noted at present time. Took medications crushed in pudding without difficulty. Ambulates with assistance of lazaro-chair or w/c. Unable to assess SI/HI/AVH due to cognitive deficit but does not exnibit any symptoms of acute emotional distress at present time. Currently resting in bed with eyes closed. Will continue to monitor per unit protocol.
[2021-03-21 10:28] VITALS: BP 127/83
[2021-03-21 13:23] VITALS: BP 127/83
--- NOTE | 2021-03-21 16:49 | NUR ---
RT PROGRESS NOTE-- PT STATUS HAS BEEN PRETTY MUCH THE SAME. HE APPEARS TO BE MORE IRRITABLE WHEN HE IS SITTING MOST OF THE DAY. PT WOULD DEFINITELY BENEFIT FROM WALKING MORE IF POSSIBLE.
--- NOTE | 2021-03-21 17:39 | NUR ---
Assumed care from overnight shift this am. Client was in gerichair sitting at this time. Client presented agitated and confused, and was unable to be assessed for orientation as client did not even respond to his name as he was trying to get up out of gerichair. Client could not be assessed for suicidal and homicidal ideation, as client did not answer. Client could not verbalize audio or visual hallucinations, but was seen reaching into air and grabbing air. Client lung sounds were clear when assessed; bowel sounds were present. Last bowel movement was today 03/21, with bowel movement being large, formed. As client was reoriented during assessment, and during breakfast, client continued to present agitation. Client kept trying to get out of chair, and even when provided with a walk to attempt to calm down, was still presenting restless when returned to chair. Client kept punching the air, and could not be redirected at this time. Coping mechanisms of therapeutic touch and environment changed where used to help client without use of prns. Client was then taken for a shower by mount loader staff, and was able to shower with assistance. This helped client relax slightly. All clothing changed at this time. After this, ELIGIBILITY CONSULTANT changed wound bandage on client's right leg. Client was toileted after this. Client had bowel movement at this time. As he was getting toileted, client started to swing at mount loader staff and babble. Client resisted new briefs and pants, but with communication and environment reorientation, staff were able to put these on him. Lap nga was ordered at this time per ANA Garsia. Client continued to present agitation, and further tried to leave chair. PRN ativan 0.5 mg was given in addition to 0.5mg scheduled ativan after client was not able to be redirected with mansi nga (obtained order through ANA Brooks) fastened in front. Client given medication at this time. Client calmed down after this, and was able to be redirected, stopping his swinging at staff and stopping punching the air. During dinner, client presented as restless, so prn tylenol was given in addition to dinner medications- nonverbal pain scale used to evaluate grimace on client's face. No further concerns at this time.
[2021-03-21 20:52] VITALS: BP 127/79
--- NOTE | 2021-03-22 01:04 | NUR ---
At onset of shift supervisor film processing pt was sitting in lazaro chair in day room. Pt was restless and trying to stand up on his own. Pt required redirection from staff. Pt's brief was dry. Pt took all his HS medications in pudding. Pt was able to calm down and sleep after recieving medications. Pt was placed into bed by staff. Pt unable to verbalize needs. When RN asked pt if he was okay, pt responded "yeah." Pt's coccyx is red; z-guard paste applied. Dressing to right lower leg is dry and intact. Fall precautions are in place. Will continue to monitor.
[2021-03-22 08:00] VITALS: BP 146/122
--- NOTE | 2021-03-22 10:40 | NUR ---
Nutrition followup: pt continues to eat well with assist, 75-100% of meals with finger foods order. Continues on lasix, vitamin D supplement. Stable weights past week. BM 03/21. Low nutrition risk.
--- NOTE | 2021-03-22 18:07 | NUR ---
Assumed pt care at 0700. Pt is alert and oriented to person. Assessments completed, vss. Unable to assess orientation. Pt irritable and agitated at AM HOURS. Pt was redirected. Pt took meds whole, no difficulty noted. Ambulates with a Ghada chair. Pt is a fall risk, fall precaution in place. Pt AM BP WAS 146/122. BP retaking at 1050 128/77. 1142 1mg PO Ativan was administered for increased agitation. Reassessment, pt became calm and relaxed. Pt was assisted with with all meals. Incontinent of bowel and bladder. At this time pt is in the day room. Will continue to monitor.
[2021-03-22 19:25] VITALS: BP 109/71
[2021-03-22 19:45] VITALS: BP 100/70
[2021-03-22 20:02] VITALS: BP 109/71
--- NOTE | 2021-03-23 04:00 | NUR ---
03/22/21 @ 1920, ASSUMED CARE FOR THE NOC SHIFT, RECLINED IN A MACI CHAIR WITH EYES CLOSED, RESPIRATIONS EVEN AND UNLABORED. AWAKENED FOR ASSESSMENT AND MEDICATIONS/CRUSHED, HRRR, LUNG SOUNDS CTA BILAT. SCHEDULED NORCO 7.5MG PROVIDED FOR CHRONIC LOW BACK PAIN. NOTED TO POCKET MEDS CRUSHED IN APPLESAUCE, AND ONLY SWOLLOWED AFTER MUCH ENCOURAGEMENT.
--- NOTE | 2021-03-23 07:50 | NUR ---
03-22-2021--1500--[facility] to [facility] to the patient advocate ([phone]--[phone]. She typed up the information all the time saying this is terrible. I told her he will be here 30 dats tomorrow (Admit-02/20/21). She statted she sent a message to HUNTER Pate ([phone]) with a message that I would be back oin the AM at 0700. She stated if I didn't get a call I should call Anh in the AM. If that didn't work, I should call the patient advocate back. 03-23-2021--729--Messages listened to and Anh has not called. I called her number and left a detailed message and asked her to call me back. I will wait for a return call until 0900 at which time I will call the advocate back and have her assist me in going over the heads of Anh and Mera Hill (person who told us we could not return the 100% service connected back to his previous senior care--[facility]--) even though he has with medications, attention and the use of behavioral techniques has vastly improved from his admission.
--- NOTE | 2021-03-23 08:14 | NUR ---
03-23-2021--39--Patients "Last four" [id number]
--- NOTE | 2021-03-23 09:42 | NUR ---
03-22-2021--929--Attempted call to Beata Dozier and left the second message of the day. I attempted to call the patient advocate back and was told operatores were helping other people and they would reurn m call within 48 hours. I explained my patient's situation and told them 48 hours would be thanksgiving and I would like a return call today. I will try call again in one hour if call is not returned.
[2021-03-23 09:47] VITALS: BP 142/98
--- NOTE | 2021-03-23 11:45 | NUR ---
03-23-2021--1147--Call back to Estephania. No answer. left with my number and request to speak with Estephania. Anh the (DPSHAUNA) called with a number given to her for a lead recoverer [facility] coordinator [phone]. If I don't talk to Estephania by 1400 I will call this number.
--- NOTE | 2021-03-23 12:27 | NUR ---
Patient care resummed, patient located in dayroom in a lazaro-chair asleep with blacket over him. Patient is A&O*1 (Self), unable to assess orientation. Patients VSS, lung sounds clear and unlabored on room air, abdomen is soft non-distended, with bowel sounds present. Patient ambulates Q2hr to and from the restroom with 1 assist and a gait belt. Patient ambulates as well with the use of a Lazaro-chair. Patient presents to AUTOMATIC CENTRIFUGAL STATION OPERATOR calm, cooperative, anxious at times, with AVH noted. Patient noted having upper extremity tremors. Patient unable to verbalize if he was anxious, depressed, having SI/HI/AVH. Patient did verbalize having some back pain, unable to describe pain though. AUTOMATIC CENTRIFUGAL STATION OPERATOR assessed pain with verbal anf FLACC scale. Patient does have scheduled Narco throughout the day for his chronic back pain. Patient has a ROHO in his Mata-Chair as reddness was noted upon skin assessment. Lidocaine patch placed on patients middle lower back. Medication and meal compliant, will continue to monitor patient for safety and behaviors.
[2021-03-23 13:36] VITALS: BP 142/98
--- NOTE | 2021-03-23 14:08 | NUR ---
03-23-21--8383--Call finally returned by Sophia Dozier. She left a message with her number [phone]. Attempted to call her back. No answer. Message left to return my call and my number.
--- NOTE | 2021-03-23 15:06 | NUR ---
03-23-2021--1300--Call received from Sophia Dozier (NM) and she left me a message woth her direct number ([phone]). Attempted a call back to her and there was no answer. Message left.
--- NOTE | 2021-03-23 15:08 | NUR ---
03-23-21--6907--Call attempted to the patient advocate again today. She was out of the office and not expected back. Her number is ([phone]---ext [phone].) Will attempt contact with her Monday.
--- NOTE | 2021-03-23 19:39 | NUR ---
03/23/21 assumed care @ 1900, seated in a lazaro chair at a table in the day room. Restless and resisted assessment, HRRR, Lungs CTA but diminished in the lower arreguin, ABD N x4Q.
[2021-03-23 19:52] VITALS: BP 122/78
[2021-03-23 19:53] VITALS: BP 122/78
[2021-03-24 10:08] VITALS: BP 106/73
[2021-03-24 10:39] VITALS: BP 106/73
--- NOTE | 2021-03-24 10:52 | NUR ---
Spoke to [facility] transfer [facility] in regard to discharge potential for patient - spoke to Italia who requested that we fax a referral packet to her. She will contact her psychiatrist to review. also gave her Dr. Nicolas's cell phone # so there can be a drRobert to discussion. Transfer line # is [phone].
--- NOTE | 2021-03-24 13:35 | NUR ---
RESUMMED CARE FROM OVERNIGHT SHIFT THIS AM, PATIENT IN DAY ROOM SITTING QUIET. PATIENT ATE BREAKFAST TOOK MEDICATION CRUSHED IN APPLESAUCE; PATIENT DOES NOT UNDERSTAND WHEN YOU ASK HIM ABOUT SI/HI/AH/VH. PATIENT HAS SEVERE BRAIN DAMAGE PATIENTS ABDOMEN SOFT BOWEL SOUNDS PRESENT. PATIENTS LUNGS CLEAR PATIENT LIKES TO LISTEN TO MUSIC. PATIENT CALM HAS NOT DISPLAYED ANY BEHAVIORS WILL CONTINUE TO MONITOR PATIENT FOR SAFETY AND BEHAVIORS.
--- NOTE | 2021-03-24 17:35 | NUR ---
HUNTER sent referral to the following: [facility] Robert Jimenez's at [facility]- Declined due to not being able to meet the Pt's needs [facility]- on a bed hold Hunter team will continue to follow
[2021-03-24 19:50] VITALS: BP 106/73
[2021-03-24 23:14] VITALS: BP 116/65
--- NOTE | 2021-03-25 02:31 | NUR ---
PATIENT CARE WAS RESUMED AT 1900. HE IS AWAKE IN HIS ROOM WITH A 1:1 CARE. HE TOOK HIS MEDS WHOLE AND NO SIGN OF SI/AND /HI WAS NOTED. INCONTINENT OF BOWEL AND BLADDER. LUNGS ARE CLEAR BS ACTIVE X 4 QUADS.PATIENT IS A MAX ASSIST WITH CARE.WILLAM CARE IS PROVIDED AND [id number] POSITION CHANGE. BED IS LOW, LOCKED AND ALARMED.
[2021-03-25 09:40] VITALS: BP 160/126
[2021-03-25 11:07] VITALS: BP 114/82
--- NOTE | 2021-03-25 11:24 | NUR ---
Alert but nonverbal this AM. Stiff and resistant to getting out of bed. No verbalizations to questions about SI/HI. Once out of bed able to ambulate with slightly unsteady gait. Breath sounds clear. Reg HR auscultated. Color pink with brisk capillary refill and palpable peripheral pulses. Minimal edema in lower extremities. Incontinent of large amt yellow urine this AM. Active bowel sounds over soft, rounded abdomen. Drsgs per R calf dry and intact. Currently sleeping in dining room in recliner without s/o distress.
[2021-03-25 11:25] VITALS: BP 114/82
--- NOTE | 2021-03-25 15:05 | NUR ---
HUNTER faxed ref[phone] [facility] [phone] [facility] [phone] [facility]
--- NOTE | 2021-03-25 17:44 | NUR ---
Received phone call from Lisa Loyola, RN from [facility] stating that she had talked to Mandie Frey about accepting above pt and he was declined d/t facility is not accepting VA contracts at this time d/t not being fully vaccinated for COVID. Will leave msg for HUNTER Tavares.
[2021-03-25 19:21] VITALS: BP 100/70
[2021-03-25 19:50] VITALS: BP 100/70
--- NOTE | 2021-03-25 23:41 | NUR ---
03/12/21 assumed care @ 1900, seated in a lazaro chair in the day room with staff nearby observing the patient continuously. Calm and cooperative with medicaiton crushed in pudding. HRRR, Lung sounds CTA but diminished, ABD N x4Q over a round obese abdomen. Patient smiled and laughed at conversation. A&Ox1, but participated in conversation, laughing at the punch line of a joke. Reported to this nurse @ shift change that patient had a large BM today. Will continue to monitor for safety and comfort as per unit protocol.
[2021-03-26 05:30] LABS: HEMATOCRIT 33.9 % (42.0-52.0); HEMOGLOBIN 10.5 gm/dL (14.0-18.0); MCH 22.8 pg (26.0-34.0); MCHC 30.9 g/dL (28.0-37.0); MCV 73.5 fL (80.0-100.0); RBC 4.61 mil/uL (4.50-6.00); RDW 15.5 % (10.5-14.5); WBC 4.8 thou/uL (4.0-11.0)
[2021-03-26 06:03] LABS: CALCIUM 8.8 mg/dL (8.5-10.1); POTASSIUM 3.9 mmol/L (3.5-5.1)
[2021-03-26 09:58] VITALS: BP 123/79
--- NOTE | 2021-03-26 11:24 | NUR ---
03-26-2021--1125--Call to HUNTER Hagen ([phone]). She will find the transfer number and call me back to set up a physician to physician call.
--- NOTE | 2021-03-26 12:09 | NUR ---
HUNTER faxed Referrals to the following: [facility] HUNTER team will follow up
[2021-03-26 12:58] VITALS: BP 123/79
--- NOTE | 2021-03-26 13:39 | NUR ---
03-26-2021--7630--Fax[facility]. No response.
--- NOTE | 2021-03-26 14:31 | NUR ---
Resummed care from overnight shift this am. Client was in gerichair in activity area after getting changed by electrical prospecting operator staff. New brief, shirt, and pants were present. Client presented appropriate to usual behavior, with client being unable to articulate words and expressions, and instead, stating "be boop be be" and singing. Client was unable to answer questions about depression and anxiety at this time. Client also unable to answer questions about si/hi, though no inappropriate behavior was noted. Client was not able to answer questions of visual or audio hallucinations, though has been noted still reaching for air and grabbing at air. Client can respond to name, and does turn when called either "Jomar" or "Sada" which is his nickname. Client is not oriented besides to person. Client lung sounds were clear; bowel sounds were present. Client did not present with any outstanding behaviors at this time, and one to one with client was discontinued. Ativan dose increased to 1.[address] Nicolas to help with occasional restlessness. Client is currently sitting in chair playing with a fidget toy. Client took medications crushed in apple sauce. Prn tylenol provided due to slight grimace on nonverbal pain assessment, and from nonverbal assessment, seems to have provided further pain relief. No concerns at this time.
[2021-03-26 19:40] VITALS: BP 105/69
[2021-03-26 20:20] VITALS: BP 105/69
--- NOTE | 2021-03-27 01:37 | NUR ---
ASSUMED CARE OF PATIENT AT 1900. PATIENT WAS SLEEPING IN MACI CHAIR IN DINING ROOM. PATIENT VSS STABLE. HE AROUSED BUT WAS DROWSY TO TAKE HIS MEDS WHICH WERE CRUSHED IN PUDDING. PATIENT HAD NEW ORDER TODAY FOR ATIVAN 1.25MG. PATIENT'S BP WAS 105/69 AND RESPIRATIONS WERE 22. SO GAVE PATIENT 0.75MG OF ATIVAN PO D/T HIM DROWSY AND PT VERY SLOW AT SWALLOWING D/T DROWSY. WITHIN AN HOUR PATIENT'S RESPIRATIONS DECREASED DOWN TO 10 AND UNABLE TO WAKE PATIENT. 02 SAT WAS AT 89% BUT CAME UP WITH HEAD OF CHAIR UP AND STIRRING PATIENT TO AWAKE SOME. PATIENT CONTINUED TO SLEEP. NOTIFIED DR FONG BY PHONE AT 0115 WHEN HE CALLED OF THE ABOVE. PER HIS ORDER, LORAZPAM 1.25MG PO ,15,21 DC'D AND NEW DOSE OF LORAZEPAM BACK TO 1MG PO ,15,21. CONTINUING TO MONITOR PATIENT AND AT THIS TIME PATIENT'S RESPIRATIONS AT 16. PT RESTING COMFORTABLY. CHAIR LOCKED AND CHAIR ALARM IN PLACE.
--- NOTE | 2021-03-27 07:08 | NUR ---
PATIENT SLEPT ALL NIGHT. PATIENT DID NOT VOID. NEW ORDER RECIEVED TO BLADDER SCAN PATIENT AND TO STRAIGHT CATH IF OVER 400CC. BLADDER SCANNED X1 AND WAS 488CC AND WAS STRAIGHT CATHED WITH 14 FR AND HAD 600CC OUT. PATIENT TOLERATED WELL. PATIENT ASSISTED BACK TO DINING ROOM X 2 WALKING. PATIENT TOOK HIS MED CRUSHED IN PUDDING.
[2021-03-27 09:40] VITALS: BP 127/77
--- NOTE | 2021-03-27 11:39 | NUR ---
11:39AM - Phone call to [facility] - Left message with administrative assistant receptionist who stated no one from admissions was present today.
--- NOTE | 2021-03-27 16:40 | NUR ---
BLADDER SCAN COMPLETED AT 1600 PER MD ORDER AFTER LARGE INCONTINENT VOID WHICH SATURATED BRIEF,2 INCONTINENT PADS IN CHAIR-PANTS AND CUSHION HE WAS SITTING ON-BLADDER SCAN SHOWS 60 CC REMAINING IN BLADDER-HAS BEEN AMBULATED X3 IN HALLWAY AND TOLERATES THIS ACTIVITY FAIR-DOES REQUIRE ASSIST 2-3 STAFF WHEN TOILETING,INCONTINENT CARE D/T SOME MILD RESISTANCE WITH SITTING ON COMMODE AND REMOVING SOILED BRIEF,CLOTHING-OTHERWISE NO ACUTE AGITATION-RESTLESS AT TIMES ATTEMPTING TO GET UP ON HIS OWN BUT IS ABLE TO BE REDIRECTED BY STAFF. TAKES MEDS CRUSHED IN PUDDING
[2021-03-27 18:35] VITALS: BP 117/75
--- NOTE | 2021-03-27 23:00 | NUR ---
At onset machinist 2nd shift pt was resting in bed awake. This shift pt was awake and arousable when asleep, but pt was nonverbal in the evening. Pt appeared tired. Pt was compliant with medications crushed in pudding and drinking the liquid keppra in orange juice. Pt was overall calm, and not resistive to care or restless. Fall precautions are in place. Will continue to monitor.
[2021-03-28 05:40] LABS: HEMATOCRIT 33.5 % (42.0-52.0); HEMOGLOBIN 10.6 gm/dL (14.0-18.0); MCH 22.7 pg (26.0-34.0); MCHC 31.6 g/dL (28.0-37.0); MCV 71.8 fL (80.0-100.0); RBC 4.66 mil/uL (4.50-6.00); RDW 15.9 % (10.5-14.5)
[2021-03-28 07:33] VITALS: BP 128/103
--- NOTE | 2021-03-28 10:33 | EKG ---
[place] [address] [facility] [place] [address] ELECTROCARDIOGRAM REPORT Name: LEE ANN SAUCEDO Room #: 528A-A ADM IN M.R.#: [id number] Admission: 02/20/21 Attend Phys: Jimenez Nicolas DO Discharge: Date of : 63 Report #: [id number] [facility] Test Date: 2021-03-27 Test Time: 11:08:51 Pat Name: LEE ANN SAUCEDO Department: Room: 52 A Gender: M Mold Cutting Machine Operator: SYLVIA : 1965 Requested By: Gogo Stephen Order Number: [id number] MD: Loyd Liz Measurements Intervals Kinsey Rate: 94 P: 63 MN: 170 QRS: 30 QRSD: 100 T: 3 QT: 371 QTc: 464 Interpretive Statements Sinus rhythm Borderline T abnormalities, inferior leads Baseline wander in lead(s) V1 No previous ECG available for comparison Electronically Signed On 03-28-2021 10:32:39 ELECTRONIC PUBLICATIONS SPECIALIST by Loyd Liz [email or web address] <ELECTRONICALLY SIGNED> By: Loyd Liz MD 03/28/21 1032 1108 [id number] MD STEPH Phan
[2021-03-28 15:00] VITALS: BP 141/100
--- NOTE | 2021-03-28 15:53 | NUR ---
AROUND 1445 STAFF AT THE NURSING STATION, AND IN THE DINNING ROOM HEAR A LOUD BUMP. STAFF WENT TO CHECK AND FOUND PT SITTING ON HIS BOTTOM ON THE FLOOR. PT IS CONFUSED ALERT TO SELF ONLY. PT DENIES ANY PAIN. NO INJURY NOTED. DR MARTÍNEZ, DRY CELL ASSEMBLY SUPERVISOR, AND PT JUNI SAUCEDO ALL NOTIFIED.
[2021-03-28 17:18] VITALS: BP 136/85
[2021-03-28 17:19] VITALS: BP 137/99
[2021-03-28 19:30] VITALS: BP 137/99
--- NOTE | 2021-03-28 22:15 | NUR ---
03/28/21 assumed care @ 1900, seated in a lazaro chair at a table with staff. Awake, alert, oriented x0-1. Responds to his name, but will not verbalize it. HRRR, Breath sounds diminished but clear, patient does not breath deeply secondary to dementia, ABD N x 4Q. Taken to bed @ HS with x3 assist to transfer, patient was drowsy but was awake enough to resist against each effort of the transfer and incontinent care process. Bed in low position, bed alarm set, 3 rails up on the bed.
[2021-03-29 05:40] LABS: ABSOLUTE NEUTROPHILS 3.7 thou/uL (1.4-8.2); BASOPHILS 0.6 % (0.0-2.0); EOSINOPHILS 1.7 % (0.0-3.0); HEMATOCRIT 32.8 % (42.0-52.0); HEMOGLOBIN 10.3 gm/dL (14.0-18.0); MCH 22.7 pg (26.0-34.0); MCHC 31.5 g/dL (28.0-37.0); MCV 72.3 fL (80.0-100.0); PLATELET COUNT 315 thou/uL (150-400); POLYS 55.7 % (36.0-66.0); RBC 4.53 mil/uL (4.50-6.00); RDW 15.9 % (10.5-14.5); WBC 6.7 thou/uL (4.0-11.0)
[2021-03-29 06:10] LABS: ALBUMIN 3.3 g/dL (3.4-5.0); CALCIUM 8.7 mg/dL (8.5-10.1); CREATININE 1.1 mg/dL (0.7-1.3); MAGNESIUM 2.4 mg/dL (1.8-2.4); PHOSPHORUS 4.2 mg/dL (2.5-4.9); POTASSIUM 4.1 mmol/L (3.5-5.1); TOTAL BILIRUBIN 0.2 mg/dL (0.2-1.0); TOTAL PROTEIN 6.5 g/dL (6.4-8.2)
[2021-03-29 08:47] VITALS: BP 103/83
--- NOTE | 2021-03-29 10:31 | NUR ---
Followup: continues to eat well and wts are stable around 218 lb. Requires feed assist. Remains low nutrition risk
--- NOTE | 2021-03-29 10:57 | NUR ---
RT Progress Note- Jomar continues to be present in the milieu throughout each day with passive participation in group programming. Jomar is provided 1;1 stimulation with tactile mat as well as music each day. He continues to show a positive response to these interventions when he is restless. TELESALES TEAM LEADER will continue plan.
--- NOTE | 2021-03-29 11:45 | NUR ---
03-29-2021--1100--Call from Italia from the [place] (transfer line) She again stated they don't take lazaro psych patients and stated "if we took him we would be in the same boat you are in". [facility] refused.
--- NOTE | 2021-03-29 12:05 | NUR ---
03-29-2021--1200--Call to [facility] to patient advocate. ([phone], Estephania.) I explained I have called Sophia back and she referred me to Brionna Hagen. Brionna gave me the transfer line number and my air cargo specialist supervisor had already talked to them. I explained I got a call this AM from Italia on the transfer line who talked to the psychiatrist who stated they can't transfer him there because (even though he is only 54) they don't take patients from [facility] because "then we would be having the same problem you are having placing him". Estephania stated she was going to send this (statement of the problem) to the mill roll operator. She stated she would get back to me or [facility] mill roll operator would return my all to see where we can go next.
--- NOTE | 2021-03-29 13:39 | NUR ---
Alert and calm in recliner without s/o distress. No response to orientation questions except with babbling and "I don't drink enough." Attempts to stand at times but sits with direction. No speech or behavior suggestive of SI/HI. Compliant with meds given crushed or liquid. Breath sounds clear. Reg HR auscultated. Color pink with brisk capillary refill and palpable peripheral pulses. Minimal edema in feet. Brief dry. Bladder scan done--max 348 cc. Active bowel sounds over full, rounded abdomen. Ambulates with assistance with slightly unsteady gait. Sitting at table in recliner most of AM without s/o distress. Ambulating with assistance of substation engineer.
--- NOTE | 2021-03-29 14:38 | NUR ---
SW faxed Referrals to the following [facility]
[2021-03-29 19:50] VITALS: BP 95/43
--- NOTE | 2021-03-29 20:01 | NUR ---
03/29/21 ASSUMED CARE @ 1900, SEATED IN A MACI CHAIR IN THE DAY ROOM OBSERVED CONTINUOUSLY FOR HIS SAFETY. ALLOWED ASSESSMENT, HRRR, LUNGS CTA, ABD N X 4Q. NONVERBAL, UNABLE TO RESPOND TO MENTAL HEALTH ASSESSMENT QUESTIONS, HOWEVER HE SMILES WHEN THIS NURSE SPOKE TO HIM CHEERFULLY. DOES NOT APEAR TO BE IN A GREAT DEAL OF PAIN, WILL BE GIVING NORCO 5/325 @ 2100 DOSE PER SCHEDULED PAIN REGIMEN.
[2021-03-30 09:02] VITALS: BP 119/80
--- NOTE | 2021-03-30 11:23 | NUR ---
HUNTER sent referrals to the following: [facility]- declined due to no beds avaliable
--- NOTE | 2021-03-30 16:56 | NUR ---
Pt. care resummed, patient lying in Ghada-Chair resting apon assessment. A&O*1 (self only), VSS, Lung sounds clear and unlabored, Abdomen firm and distended with bowel sounds present*4. Bladder scan was completed with 253cc in the bladder at 1030. Patient had not urinated and was rescanned at 1330 and scan showed 638cc. Pt. then started pulling down his pants in the dayroom and pull out his penis, patient taken to his room where he was soaked urine and then began urinating into a urinal were the he urinated about 400cc. Patient was irritable prior, aggitated, and was attempting to get out of his chair. After bladder was relieved and a onetime dose of 5mg Hydrocodone was given patient calmed down and has since be laughing and joking with staff. AVH present by staff as patient seen talking and reaching to the air. JAVA LEAD reported to AIR CONDITIONING INSTALLER SUPERVISOR that the patient isn't eating as well as he usually does. JAVA LEAD stated that the pt. says "Ouch" when eating, then states 2 days ago when she brushed the patients teeth, his mouth was very bloody. AIR CONDITIONING INSTALLER SUPERVISOR examined the mouth and the patients gums were red and inflammed. Fall/Seizure precautions are in place, medication and meal compliant. Will continoue to monitior patient for safety and behaviors.
--- NOTE | 2021-03-30 17:55 | NUR ---
SW sent referrals to the following: [facility]- [phone] [facility] [phone] [facility] [phone] [facility] [phone] [facility] [phone] [facility] [phone] [facility] [phone] [facility] [phone]
[2021-03-30 19:38] VITALS: BP 143/77
--- NOTE | 2021-03-30 21:45 | NUR ---
03/30/21 1900, seated in lazaro chair in the day room, observed continously by staff while awake. Noted to be restless, given scheduled [place] 5mg/325 @ 2009, relaxed, became sleepy and was sleepy when transferred to bed @ HS. Lidocain patch was not on back at HS. In bed with bed in low position, bed alarm set. Will continue to monitor q12 minutes for patients safety and comfort.
[2021-03-31 09:26] VITALS: BP 125/68
--- NOTE | 2021-03-31 10:54 | NUR ---
04-01-2021-1000--Treatment team meetoing this AM. Continuing to send out referrals to [place] and [place] as well as [facility] in [place]. Will call patient's to have her start aplication for Medicaid. Will contact first source to start application process. Phone call this afternoon with Hospital attorney law clerk (Time 1400).
--- NOTE | 2021-03-31 16:02 | NUR ---
Patient care resummed, patient medication and meal compliant. Bladder Scan done at 0815 and 450cc of urine was retained, patient then urinated on his own in commode and post residual read as 37cc. A&O*1 (self) lung sounds clear and unlabored, VSS on room air, abdomen soft without distention and bowel sounds present*. VH observed by NATURAL HISTORY COLLECTIONS CURATOR as patient was reaching for the air around him. Unable to assess verbally Pain scale, anxiety, depression, SI/HI/AVH. Although speech/behavior are not suggistive of SI/HI, and patient has an increase in aggation when he begins having increased pain. Q2hour walks and RR breaks noted, and walks done with *1 assist. Fall/seziure precations are in place, Ex.Large BM today 03/31. Will continue to monitor this patient for safety and behaviors.
[2021-03-31 19:11] VITALS: BP 108/70
--- NOTE | 2021-03-31 22:10 | NUR ---
At onset of fast food shift lead pt was sitting in day room calmly. This shift pt was alert with broad affect. Pt was compliant with taking his meds in pudding and liquid keppra in orange juice. Pt was incontinent of urine in the evening. Pt was transferred to bed for the evening. Pt was not resistive or combative during cares. Fall precautions are in place. Will continue to monitor.
[2021-04-01 08:54] VITALS: BP 120/101
[2021-04-01 10:08] VITALS: BP 120/101
--- NOTE | 2021-04-01 12:49 | NUR ---
Referral sent to the following: [facility]- declined cant meet needs [facility]- declined can't meet needs
--- NOTE | 2021-04-01 13:43 | NUR ---
Resummed care from overnight shift this am. Client was in gerichair in activity area resting. Client presented calm, and was assisted with breakfast and ADLs to help him get ready for the day. Client was neat and groomed as he had been changed by GEODUCK DIVER staff. Client had received scheduled pain medication this morning, and was not presenting as having any grimace or pain. Lidocaine patch was put on client's back to assist with generalized and persistent back pain. Client was unable to verbalize any depression or anxiety, si or hi, or audio and visual hallucinations. From general assessment, client did not appear restless nor was client engaging in harmful behavior. Client did present was occasionally talking to the air and reaching with his hands, but otherwise was calm. Lung sounds were clear; bowel sounds present. Last BM was 03/31/21. Brief changed this morning. Client proceeded to watch tv, and join group was distance. Client also engaged in music and listening, bopping his head to the beat. After lunch, client went back to bed and is currently asleep. No further concerns at this time.
--- NOTE | 2021-04-01 17:18 | NUR ---
Referral sent to the following [facility] ([place]) [facility] Wilder Islas [facility] [address] [facility] Colon team will follow up
[2021-04-01 19:08] VITALS: BP 114/65
--- NOTE | 2021-04-02 03:15 | NUR ---
PATIENT HAS BEEN IN BED SINCE BEGINNING OF SHIFT. PATIENT AWOKE EASILY FOR HS MEDICATIONS AND THAN WENT BACK TO SLEEP.
[2021-04-02 10:22] VITALS: BP 129/76
--- NOTE | 2021-04-02 11:43 | NUR ---
Phone call with Angela Faith [phone] (director, [facility]) and her deputy stonecutter assistant. Reviewed admission of patient and the details of agreement when intake was completed and [facility] agreed to accept patient back after treatment was completed here. Director said they had staffed the patient prior to them calling me and denying the patient to return back to his home at the [place]. Director stated that they are working hard to find placement for the patient. I explained that he has had no behaviors in weeks. Director requested new notes. Agreed we would fax new notes today - Director will call AUSTIN Rodriguez on Monday @ 11:30 as I will be out of the office. I emphasized that this is a time sensitive matter and Director agreed.
--- NOTE | 2021-04-02 13:32 | NUR ---
Patient has been in day room majority of shift. He has been taking his medications crushed in applesauce, no difficulty noted. He has been toileted several times this shift. He has had episodes of urine incontinence. No BM yet this shift. He has been calm and cooperative. He is AAO to himself. He has had a good appeite and fluid intake. Patient has walked to his room, and dayroom with staff members. Will continue to monitor patient.
[2021-04-02 16:10] LABS: URINE BILIRUBIN NEGATIVE (Negative); URINE BLOOD 2+ (Negative); URINE CLARITY CLOUDY; URINE COLOR YELLOW; URINE GLUCOSE-RANDOM* NEGATIVE (Negative); URINE KETONES NEGATIVE (Negative); URINE NITRITE-REFLEX NEGATIVE (Negative); URINE PROTEIN (DIPSTICK) NEGATIVE (Negative); URINE UROBILINOGEN 0.2 E.U./dl (0.2-1.0)
[2021-04-02 16:28] LABS: URINE LEUKOCYTES-REFLEX 1+ (Negative)
[2021-04-02 16:30] LABS: BACTERIA-REFLEX None Seen /HPF (None Seen); CRYSTALS None Seen /LPF (None Seen); SQUAMOUS None Seen /LPF (0-3); URINE RBC 1-2 Rare /HPF (NONE SEEN); URINE WBC-REFLEX 0-5 Rare /HPF (0-5)
[2021-04-02 16:31] LABS: AMORPHOUS URATES Few /LPF (None Seen); TRIPLE PHOSPHATE CRYSTALS 4-10 Moderate /LPF (None Seen)
[2021-04-02 19:19] VITALS: BP 106/50
--- NOTE | 2021-04-03 06:15 | NUR ---
04-02-21 CARE TRANSFERRED 1900. PT AAOX1, VSS, RR EVEN AND NONLABORED ON RA. PT HAS SCHEDULED PAIN MEDICATION R/T LOWER BACK PAIN. OBSERVED NO SI/HI BEHAVIOR. PT HAS BEEN CALM AND COOPERATIVE DURING NURSING ASSESSMENT AND CARES, PT HAD LARGE HEAVY BRIEF WITH YELLOW URINE. THIS AM PT HAD SOAK URINE BED WITH HEMATURIA. 2 CALLS TO HCP Efrain MCBRIDE NP MESSAGE LEFT. REPORT TO ONCOMING RN TO BE GIVING.
[2021-04-03 09:47] VITALS: BP 105/56
--- NOTE | 2021-04-03 10:41 | NUR ---
Patient care resummed, patient located in a Ghada-Chair in the dayroom resting comfortably. Patient unable too answer all of LPNs assessment questions due to speech barrier. Patient does not show S&S of pain/discomfort at this time, Narco give per schedule. Patient is incontinent of B&B at times, but when assisted to bathroom regularly he uses the commode. Patient ambulates with standy assist, and is walked around the unit multiple times throughout the day. A&O*1 (Self), lung sounds are clear bilaterally, abdomen is soft;nondistended with bowel sounds present*4. Patient V/S showed to be Hypotensive and Tachycardiac this morning. 0800- BP: 105/56 HR: 104 R:17 O2:94% V/S were taken again @0830- BP: 104/71 HR: 103 O2:98% Patient has been urinating without difficulty today. GUEST ASSOCIATE did note in patients labs there has been a steady decrease in the Hgb/Hct. On 03/01/21 Hgb: 12.0 & Hct: 38.3 and the most recent set of labs 03/29/21 Hgb: 10.3 & Hct:32.8 Hospitalist notified during rounds about labs and V/S. Will continue to monitior this patient for safety and behaviors.
--- NOTE | 2021-04-03 12:24 | NUR ---
04-03-2021--1200--[facility]denied after sending paperwork (referral packet) to them: [facility] [phone]--Message left--[facility] SW, DON [facility][phone]--DON, SW, admissions in on Monday [address]--[phone]--In on Monday [facility]--[phone]--Clinically accepted--No beds available-- Call back on Monday [facility]--[phone]--Back in on Monday [facility]--[phone]--unsure, call back Monday [facility]--[phone]--message left for call back [facility]--[phone]--Fax number?/will try Monday
[2021-04-03 16:45] VITALS: BP 195/120
[2021-04-03 16:46] VITALS: BP 170/90
[2021-04-03 17:44] VITALS: BP 164/88
[2021-04-03 19:48] VITALS: BP 146/80
[2021-04-03 22:13] VITALS: BP 146/80
--- NOTE | 2021-04-04 05:33 | NUR ---
Jomar was drowsy at the start of the shift and required frequent attempts to wake up up, but once able to wake him up he was able to stay awake until going to bed. He took his medications crushed in pudding without difficulty. His pulse upon initial vitals was 120 but this RN retook pulse manually and was 64. He responded to his preferred name, Edwin, but otherwise is disoriented to place, time and situation. He presents with word salad but was laughing and smiling this shift. He slept throughout the night and did not receive his 0100 cephalexin as it could not safely be administered due to pt sleeping and not being able to be aroused enought ot safely swallow. Pt was incontinent of urine this shift but compliant with cares. Will continue to monitor.
[2021-04-04 09:35] VITALS: BP 112/90
--- NOTE | 2021-04-04 09:50 | NUR ---
Patient care resummed, patient resting comfortably in a Ghada-Chair in the dayroom. Patient is more alert/awake today and not as drowsy. Patient has urinated without difficultities and has been assisted with walking around unit. A&O*1(Self) lung sounds are clear and unlabored on room air, abdomen soft;nondistended with bowel sounds present*4. V/S stable this morning BP:112/90 HR:95 R:18 T:97.5 O2:96% on room air. Medication and meal compliant, patient unable to deny SI/HI/AVH, anxiety, depression, or pain. Patient is Non-Verbal with past Hx.TBI. Patient presents signs of AVH, by reaching for the air around him and mummbling while doing so. Pain assessment done using a non-verbal scale, patient appears comfortable without any S/O discomfort noted. Fall and seziure precautions are in place, will continue to monitior patient for safety and behaviors.
[2021-04-04 14:31] LABS: URINE BILIRUBIN NEGATIVE (Negative); URINE BLOOD 3+ (Negative); URINE CLARITY SL CLOUDY; URINE COLOR YELLOW; URINE GLUCOSE-RANDOM* NEGATIVE (Negative); URINE KETONES NEGATIVE (Negative); URINE NITRITE-REFLEX NEGATIVE (Negative); URINE PROTEIN (DIPSTICK) 2+ (Negative); URINE SPECIFIC GRAVITY >= 1.030 (1.005-1.035); URINE UROBILINOGEN 0.2 E.U./dl (0.2-1.0)
[2021-04-04 14:37] LABS: URINE LEUKOCYTES-REFLEX 2+ (Negative)
[2021-04-04 14:39] LABS: CASTS None Seen /LPF (None Seen); SQUAMOUS 0-3 Few /LPF (0-3)
[2021-04-04 14:40] LABS: CRYSTALS None Seen /LPF (None Seen); URINE RBC >20 Many /HPF (NONE SEEN); URINE WBC-REFLEX >25 Many /HPF (0-5)
--- NOTE | 2021-04-04 16:45 | NUR ---
PATIENT AT 1410 PATIENT BEGAN WAS WARM TO TOUCH AND VITALS DONE PATIENTS BP 180/108, PULSE 131, TEMP 100.5, RESPIRATION 28. TONYA THE NURSE PRACTIONER WAS ON UNIT, I ADVICED HER ABOUT PATIENTS SYYMPTOMS. I BLADDER SCANNED PATIENT AND HE HAD 400 CC OF URINE IN BLADDER. I STRAIGHT CATHED PATIENT AND GOT 400 CC OUT; THE URINE HAD A SMELL AND WAS CLOUDY AND HAD SMALL BLOOD. I ASKED MULE RIDER FOR UA/UC AND I DID A COVID TEST ON PATIENT. I CALLED DR FOREMAN AND SHE CAME TO SEE PATIENT. DR FOREMAN ORDERED IV ROCEPHIN 1 GRAM AND 1 BAG OF NA CHLORIDE 100O ML/1 HOUR. PATIENT GIVEN TYLENOL 650 FOR PAIN AND FEVER; PATIENTS IV PLACED IN RIGHT HAND PATIENT HAS STAFF SITTING WHILE IV GOING. PATIENTS VITALS RETAKEN BP 132/78, PULSE 80, RESPIRATION 18, TEMP 99.1. STAFF FEEDING PATIENT ICE CREAM TO SOOTH PATIENT. WILL CONTINUE TO MONITOR PATIENT FOR SAFETY AND BEHAVIORS.
[2021-04-04 19:23] VITALS: BP 117/64
--- NOTE | 2021-04-05 02:07 | NUR ---
PATIENT LAYING IN BED AND HAVING A BM. PATIENT'S PULSE CONTINUES TO STAY AT 100 TO 120. MULTIPLE CHECKS THIS EVENING ON PATIENT'S TEMP D/T HIS FOREHEAD FEELS WARM. EACH TIME REGISTERING 98.6 TO 99.0. PATIENT MORE ALERT THIS EVENING WITH EYES OPEN AND AWARE OF WHAT'S GOING ON AROUND HIM. HE IS HARD TO UNDERSTAND WHEN HE TRIES TO COMMUNICATE. PATIENT WITH APPROPRIATE FACIAL EXPRESSIONS AND SMILING AND LAUGHING AT TIMES. PATIENT HAS HAD 2 LARGE SOFT BMS TONIGHT. PATIENT IS RESTING IN BED QUIETLY. NO INDICATIONS OF PAIN. NO SIGNS OF SI/HI/AVH. PT TOOK MEDS CRUSHED IN PUDDING AND HAD 2 CUPS OF WATER/SPRITE. ROUTINE ROUNDS TO ASSESS SAFETY AND STATUS OF PATIENT. BED IN LOW POSITION AND BED ALARM IS ON. CONTINUING TO MONITOR.
[2021-04-05 08:43] VITALS: BP 107/88
--- NOTE | 2021-04-05 09:59 | NUR ---
Followup; continues to eat >75% of majority of meals. +BM, wts up 3 lb. Low nutrition risk.
--- NOTE | 2021-04-05 11:43 | NUR ---
Spoke with Angela Faith, director of [employer] with [facility], Risk management. Angela reports that Dr. Poole has reached out to [facility] facilities to see if they will accept this patient. We should hear from Mera with [facility] regarding [facility] accepting patient today 04/05/21. Angela also reports that they have contacted [facility] in [place]. Reports that there is another LTC facility in the [place] area that is working on becoming re-certified for VA benefits. Frederick Paez, Angela's boss, also joined the call.
[2021-04-05 12:56] VITALS: BP 107/88
--- NOTE | 2021-04-05 17:28 | NUR ---
Jomar presented as calm, cooperative, and pleasantly confused this shift. Pt is unable to be assessed due to pt's cognitive state and disogranized behavior but no aggressive or agitated behaviors were noted this shift. He usually responds to his nickname "Edwin" but is easily distracted. He often will grasp at things that are not not there. He appeared comfortable throughout the shift and did not appear to be in pain. At times throughout the day it was difficult for pt to follow commands and to have him stand, but he eventually was able to help staff by standing during cares to get pt cleaned up. He had a soft BM this shift and multiple episodes of urinary incontinence, therefore pt was not bladder scanned this shift. Pt fell asleep this afternoon just prior to dinner therefore pt has not yet eaten dinner but will be offered once awake. Will continue to monitor.
[2021-04-05 19:40] VITALS: BP 109/53
[2021-04-05 21:08] VITALS: BP 109/53
--- NOTE | 2021-04-06 05:37 | NUR ---
04/05/21 1900 SEATED IN MACI CHAIR IN THE DAY ROOM. AWAKE AND ALERT, ORIENTED X1 TO HIMSELF ONLY. COOPERATED WITH ASSESSMENT: HRRR, LUNGS CTA BILAT, ABD N X 4Q. LOOSE STOOLS REPORTED AND SENNA HELD. TOOK MEDS CRUSHED IN PUDDING AND ATE REMAINDER OF THE PUDDING FOR SNACK. GOOD APPETITE NOTED. RETIRED TO BED @ HS BY X2 STAFF INCONTINENT OF URINE, WET BRIEF NOTED.
--- NOTE | 2021-04-06 10:45 | NUR ---
RT Progress Note- Jomar continues to show the same level of passive participation in the milieu and recreation therapy groups. He engages best with 1;1 interaction and continues to respond well to music. HEEL BRUSHER will continue present plan.
[2021-04-06 12:13] LABS: HEMATOCRIT 31.9 % (42.0-52.0); MCHC 31.2 g/dL (28.0-37.0); MCV 70.6 fL (80.0-100.0); RBC 4.52 mil/uL (4.50-6.00); RDW 16.3 % (10.5-14.5); WBC 7.2 thou/uL (4.0-11.0)
--- NOTE | 2021-04-06 12:20 | NUR ---
SW resent a referral the to [facility] hyperion administrator. Pt was denied. This is the 3rd time referral was sent to [facility].
[2021-04-06 12:31] LABS: CALCIUM 8.6 mg/dL (8.5-10.1); CREATININE 0.9 mg/dL (0.7-1.3); POTASSIUM 3.9 mmol/L (3.5-5.1)
[2021-04-06 13:02] VITALS: BP 144/123
[2021-04-06 13:03] VITALS: BP 99/46
--- NOTE | 2021-04-06 14:46 | NUR ---
Alert and babbling. Does not respond to questions. Breath sounds clear. Reg HR auscultated. Color pink with brisk capillary refill and palpable peripheral pulses. Active bowel sounds over soft, rounded abdomen. Brief dry. Currently sitting in day room without s/o distress.
--- NOTE | 2021-04-06 16:10 | NUR ---
Referral faxed to the following [facility]- [phone] [facility] [phone] [facility] [phone] [facility] [phone] [facility] [phone] [facility] [phone] [facility] [phone] [facility] [phone] [facility] [phone] [facility] [phone]
--- NOTE | 2021-04-06 16:15 | NUR ---
Patient care resummed, patient located in the dayroom resting comfortably in Ghada Chair. Alert and "rambling," lung sounds clear bilaterally, abdomen soft;nondistended with bowel sounds present*4. Patient Incont. of Bowel*2 today & bladder*4 today. Patient is a more pale in color today; patient afebrile today with V/S fluctuating throughout the day. 0745 BP: 130/67 HR:107 1240 BP: 99/46 HR: 89 Patient labs were drawn today and reviewed, patient is still on antibiotics for a UTI at this time. Patient did not eat much of his meals today, and fluids were encouraged. Patient has been calm, cooperative, and pleasent with staff, medication and meal compliant. Fall/Seziure precautions are in place, will continue to monitior for safety and behaviors.
[2021-04-06 19:40] VITALS: BP 101/64
[2021-04-06 22:01] VITALS: BP 101/64
--- NOTE | 2021-04-07 00:24 | NUR ---
04/06/21 Assumed care @ 1900, seated in lazaro chair in the day room. Alert & oriented x1 to person only will respond to his latasha name, Edwin but speach is rambling and without understandable words, but then he will chuckle at what he said. BM noted formed, loose BM reported earlier in the day, Senna/Docusate held. Unable to answer mental health questions d/t dementia and confusion. Tylenol 650 given for back pain. Chair alarm in place when seated in lazaro chair. When transferring from lazaro chair to bed, patient resists efforts to stand and bear weight, pushing against staff and requiring x3 assist to keep staff from being injured by transfer and incontinence efforts. Urine output noted, brief is wet when incontinent care is given. High fall risk, bed in low position, bed alarm set 3 siderails up. Will continue to monitor for safety and comfort as per unit protocol.
[2021-04-07 08:32] VITALS: BP 121/80
--- NOTE | 2021-04-07 12:31 | NUR ---
04-07-2021--0945--Attended team meeting for patient this date. Doctor and DON were present.
--- NOTE | 2021-04-07 15:47 | NUR ---
Patient care resummed, patient located in the dayroom in Ghada Chair. Patient noted to be in some distress per FLACC pain scale; PRN Narco was given with morning medications. A&O*1 (self) Lung sounds clear bilaterally & unlabored; abdomen soft;nondistended with bowel sounds present*4; incontinent of bladder 3 times today; ambulatory with *2 assist; VSS and afebrile. Patient unable to verbalize concerns, goals with GARAGE DOOR OPENER INSTALLER d/t dementia and debility. Patient on fall/seziure precautions, fluids are being incouraged per orders. Patient was visualized during meals stating "Owe" when attempting to eat. Hospitalist was notified of possible oral pain, GARAGE DOOR OPENER INSTALLER unable to assess oral cavitiy due to patient not being able to cooperate. Will continue to monitior patient for safety and behaviors.
[2021-04-07 19:44] VITALS: BP 121/76
--- NOTE | 2021-04-07 19:53 | NUR ---
DAY SHIFT NURSING NOTES AND ASSESSMENTS REVIWED NO CHANGES REQUIRED
--- NOTE | 2021-04-08 00:14 | NUR ---
At onset of hoist worker pt was sitting in lazaro chair awake in the day room. This shift pt was alert and only oriented to himself. RN asked pt if he was feeling okay and pt nodded his head "yes." Pt was nonverbal this evening. Pt was cooperative with taking meds crushed in pudding and liquid keppra in orange juice. Day shift reported pt had 2 bowel movements and pt had one bowel movement in the evening; RN help HS colace. Pt was incontinent of urine in the evening. Pt was was not combative during cares. Fall precautions are in place. Will continue to monitor.
[2021-04-08 07:15] VITALS: BP 127/75
[2021-04-08 10:38] VITALS: BP 127/75
--- NOTE | 2021-04-08 16:48 | NUR ---
Jomar was alert and oriented to self only this shift, becoming alert or looking at staff when stating his preferred name of "Edwin". He was medication and meal compliant this shift with a good appetite. He took his medications crushed (except for flomax as it cannot be empited), without difficulty. He walked from the dayroom to his room to be changed, and ambulated back to the dayroom. At times pt had difficulty following commands to stand, and required frequent encouragement as pt was noted to stiffen up and his muscles became tight but shortly after loosened up. Pt has multiple BM's this shift, which has been ongoing, therefore senna/colace was held this morning. Pt appeared comfortable this shift, and did not appear to be in any physical distress. Will continue to monitor.
[2021-04-08 18:47] VITALS: BP 122/84
[2021-04-09 14:59] VITALS: BP 108/68
--- NOTE | 2021-04-09 17:22 | NUR ---
Referral faxed to: Hanna Tracey [phone] [facility] [phone] [facility] [place] [phone]- Declined unable to meet needs
[2021-04-09 19:18] VITALS: BP 115/80
--- NOTE | 2021-04-10 06:16 | NUR ---
Assumed care of pt at 1900. Pt calm et cooperative this shift. Took medications crushed in pudding without difficulty. Ambulates with assistance of lazaro-chair. VSWNL. Health assessment with no abnormalities noted at present time. Unable to assess SI/HI/AVH due to cognitive deficits but does not demonstrate any signs of emotional distress at present time. Currently resting in bed with eyes closed. Will continue to monitor per unit protocol.
[2021-04-10 09:59] VITALS: BP 124/96
[2021-04-10 11:25] VITALS: BP 124/96
--- NOTE | 2021-04-10 14:13 | NUR ---
RESUMMED CARE FROM OVERNIGHT SHIFT THIS AM, PATIENT SITTING IN DAY ROOM QUIET. PATIENT HAD AN EPISODE OF INCONTINENCE OF BOWEL AND BLADDER; WAS GIVEN A SHOWER. PATIENT ATE BREAKFAST TOOK MEDICATION CRUSHED IN APPLESAUCE WITHOUT INCIDENCE. PATIENTS ABDOMEN SOFT BOWEL SOUNDS PRESENT, PATIENTS LUNGS CLEAR. PATIENT UNABLE TO ANSWER QUESTIONS ABOUT SI/HI/AH/VH DUE TO DAMAGE OF BRAIN. PATIENT DOES GRIMANCE WHEN HAVING PAIN, PATIENT LIKE LISTENING TO MUSIC AND HAS NOT SHOWN ANY BEHAVIORS. WILL CONTINUE TO MONITOR PATIENT FOR SAFETY AND BEHAVIORS.
[2021-04-10 19:24] VITALS: BP 118/98
--- NOTE | 2021-04-11 05:45 | NUR ---
Assumed care of pt at 1900. Pt calm et cooperative this shift with pleasant demeanor. Took medications crushed in apple sauce without difficulty. Ambulates with assistance of lazaro-chair. VSWNL. Health assessment with no abnormalities noted at present time. Unable to assess SI/HI/AVH due to cognitive deficit but does not demonstrate any symptoms of acute emotional distress at present time. Currently resting in bed with eyes closed. Will continue to monitor per unit protocol.
--- NOTE | 2021-04-11 10:21 | NUR ---
PATIENT CARE ASSUMED AT 0700 - IN BED AWAKE WHEN ARRIVING ON UNIT. PATIENT CALM - ALERT TO SELF ONLY. NON RESPONSIVE TO ANY QUESTIONS AND UNABLE TO REDIRECT. MEDICATIONS ADMINISTERERED CRUSHED IN APPLESAUCE. TOLERATED WELL VIMPAT AND KEPPRA GIVEN IN LIQUID FORM AND TOOK DIRECTLY WITH NO INCIDENCE. PATIENT SITS IN MACI CHAIR - RESTLESS AT TIMES. FEEDER BY STAFF ATE WELL WITH ASSISTANCE - WILL CONTINUE TO MONITOR PATIENT FOR SAFETY AND ANY CHANGES IN BEHAVIOR AND ADDRESS ACCORDINGLY. SKIN INTACT AND HEART RATE STRONG AND STEADY WHEN ASSESSED. NEEDS ASSISTANCE TO BATHROON.
[2021-04-11 10:31] VITALS: BP 129/75
[2021-04-11 19:38] VITALS: BP 90/74
[2021-04-11 20:18] VITALS: BP 90/74
--- NOTE | 2021-04-12 03:03 | NUR ---
PATIENT CARE WAS RESUMED AT 1900. HE IS AWAKE IN BED. CALM AND COOPERATIVE WITH CARE. LUNGS ARE CLEAR BS ACTIVE X4 QUADS.UNABLE TO VERBLAIZE NEEDS BUT HE DENIES PAINS/SI/AVH/HI. TOOK IS MEDS WITH PUDDING. MAX [facility]ISIT [facility] CARE. WILLAM CARE DONE AND [id number] CHECK ACTIVE. HE AMBULATES WITH MACI-CHAIR.PATIENT IS INCONTINIT OF BOWEL AND BLADDER YELLOW TOP AND SOCKS ARE ON. BED IS OW. LOCKED AND ALARMED
[2021-04-12 09:15] VITALS: BP 141/129
--- NOTE | 2021-04-12 10:22 | NUR ---
Followup: remains on SBH. Continues to eat well, >75% of meals. Requires feed assist. Large variation in past 2 weights obtained, 187 lb on 04/05 and 188 lb on 04/05 but 217-221 lb prior? Discussed with staff and recommend obtain standing wt if possible for accuracy. Low nutrition risk
--- NOTE | 2021-04-12 12:49 | NUR ---
RT Progress Note- No change in level of participation or interaction. Continues to be provided 1;1 music opportunities as well as sensory and fidget items throughout each day.
--- NOTE | 2021-04-12 18:20 | NUR ---
RESTLESS IN CHAIR THIS AM DESPITE BEING AMBULATED,TOILETED AND FED-TAKES PO FLUIDS WELL-DURING AM PHYSICAL ASSESSMENT INFORMED BY JEWELRY JOBBER THAT HE HAD BEEN RUBBING LOW BACK AND APPEARED TO BE IN PAIN-NORCO5/325MGPO PRN AT 0930 AND APPEARS TO RESTING QUIETLY WITH EYES CLOSED 45 MIN AFTER ADMINISTRATION. INCONTINENT OF LARGE LOOSE DIARHHEA STOOL AND REQUIRES 4 STAFF TO PROVIDE INCONTIENT CARE-TAKES MEDS CRUSHED. GAIT UNSTEADY-HIGH FALLWS RISK
[2021-04-12 20:27] VITALS: BP 138/88
--- NOTE | 2021-04-12 23:59 | NUR ---
At onset of shoe associate pt was sitting in lazaro chair in day room awake. Pt continues to only be oriented to himself. Pt was compliant with vital signs and taking medications mixed in pudding and orange juice. Pt did not engage in meaningful conversation, but did respond "yeah" when his name was said. Pt does become restless when his brief is wet; pt was changed into clean brief and placed in bed. Pt did not fall asleep quickly and stayed awake in bed for some time before falling asleep. Fall precautions are in place. Will continue to monitor.
[2021-04-13 07:45] VITALS: BP 141/90
[2021-04-13 10:10] VITALS: BP 141/90
--- NOTE | 2021-04-13 11:02 | NUR ---
Alert and babbling this AM. Will state yes and no but does not seem to be coherent speech. Giggling and smiling. Compliant with meds given crushed in apple sauce. Breath sounds clear. Reg HR auscultated. Color pink with brisk capillary refill and palpable peripheral pulses. +1 edema in feet. Active bowel sounds over soft, rounded abdomen. Senna held d/t multiple BM reported yesterday. Incontinent of very large amt yellow urine. Bladder scan done--152 cc. Resistant to stand but when he does he is able to bear wt and take several steps. Currently sitting in recliner with staff at side. No s/o distress.
--- NOTE | 2021-04-13 17:05 | NUR ---
SW sent Referrals to the following: [facility] [phone] [facility] [place] [phone] [facility] [phone] [facility]- declined due to hx of aggression [facility] [phone] [facility] [phone] [facility] [phone] [facility] [phone]
[2021-04-13 20:20] VITALS: BP 114/80
--- NOTE | 2021-04-13 22:25 | NUR ---
At onset of manufacturing shift supervisor pt was sleeping in lazaro chair in day room. This shift pt appeared tired. Pt did not sleep well the night before. Pt did wake up enough to take his medications mixed in pudding and juice. Pt yawned but did not open his eyes when publicity writer was speaking to him. Pt was nonverbal this shift. Fall precautions in place. Will continue to monitor.
[2021-04-14 14:09] VITALS: BP 101/82
--- NOTE | 2021-04-14 18:45 | NUR ---
Resummed pt care this morning from overnight shift. Client was in activity area sitting up and watching tv after being woken up by overnight shift for cares. Client presented calm and pleasant during this time. Client was oriented to self only, and unable to answer questions about depression and anxiety, si/hi, and au/vi hallucinations. Client last BM today, with present bowel sounds. Lung sounds clear. Client had some medication changes made by Dr. Nicolas during this shift, with seroquel decrease in afternoon. Dr. Andrade was called in evening to discuss client's hydocodone, as client has been grimacing and expressing pain, so that order and administration times could be clarified. No further concerns at this time.
[2021-04-14 19:35] VITALS: BP 123/67
[2021-04-14 19:39] VITALS: BP 123/67
--- NOTE | 2021-04-15 02:36 | NUR ---
FORM[facility] CARE WAS RESUMED AT 1900.HE IS AWAKE AND RESTING IN BED IN HIS ROOM. HE IS A MAX ASSIT WITH CARE AND ABLE TO RESPOND TO SOME QUESTIONS. HE IS INCONTINIET OF BOWEL AND BLADDER.ASSISTED WITH WILLAM-CARE.MAX ASSIT WITH TRANSFER, TOOK HIS MEDS WITH PUDDIING. LUNGS ARE CLEAR AND IS SOFT AND NON TENDER. YELLOW TOP AND SOCKS ARE ON AND BED IS LOW, LOCKED AND ALARMED.Q 12MINS CHECK ONGOING CONTINUE CARE
[2021-04-15 12:07] VITALS: BP 107/63
--- NOTE | 2021-04-15 16:36 | NUR ---
Referral faxed to: [facility] [phone] [facility]- declined [facility]- declined [facility]- declined [facility] declined [facility] declined not able to meet needs [facility]- declined not able to meet needs [facility]- declined not able to meet needs [facility]- declined not able to meet needs [facility]- declined not able to meet needs [facility]- [phone] [place] [phone] [facility] [phone] [facility] [phone] [facility] [phone] [facility] [phone] Another referral was sent to [facility]. HUNTER spoke with Peter, airport operations coordinator. Peter informed there still are no beds and a wait list. However Pt is first on the wait list at this time. HUNTER team will continue to follow up
[2021-04-15 19:00] VITALS: BP 114/96
--- NOTE | 2021-04-15 19:10 | NUR ---
Resummed care from overnight shift this am. Client was oriented to self only at this time. Client was toileted before being taken to activity area and sat in gerichair. Unable to assess client for depression and anxiety, though client was sitting in chair, happy, and stating "bee-dalal-dalal" and smiling at this time. No suicidal or homicidal behavior noted at this time. Client does reach at air and talk to himself at times, and appears to have internal stimuli. Client took all medications well, crushed in pudding. Client was toileted several more times during this shift, and given prn hydocodone for pain due to grimace on face via non-verbal pain scale. No further concerns at this time.
--- NOTE | 2021-04-16 05:10 | NUR ---
Assumed care of pt at 1900. Pt calm et cooperative this shift. Took medications crushed in pudding without difficulty. Ambulates with assistance of lazaro-chair. VSWNL. Health assessment with no abnormalities noted at present time. Unable to assess SI/HI due to cognitive deficit but does not demonstrate any symptoms of acute emotional distress at present time. Currently resting in bed with eyes closed. Will continue to monitor per unit protocol.
--- NOTE | 2021-04-16 12:14 | NUR ---
04-16-2021--2224--Team meeting attended this date for patient. (DPOA) and teenage daughter haven't seen patient on almost two months. A visit off the unit (due to the holidays) is scheduled in the hospital (outside of the unit) for them with the patient. Visit scheduled for 10:00 AM. Each must have had a negative COVID test prior to the visit. Place for visit not yet determined.
[2021-04-16 13:19] VITALS: BP 105/78
--- NOTE | 2021-04-16 13:26 | NUR ---
Patient care resummed; patient located in bed resting comfortably apon rounds; Patient alert, although disoriented*4; Medication/Meal compliant, calm, cooperative, and pleasent throughout the day; Patient unable to deny SI/HI/AVH, Anxiety, Depression, Pain Levels, due to debility; Patient presents no S/O acute distress at this time; AVH: visualized when patient babbling to the air, and grasping the air in front of him; Lung sounds clear bilaterally, unlabored; Abdomen soft, nondistened with bowel sounds present*4; VSS, although Hypotensive this AM; +1 pitting edema noted in BLE; Patient ambulated to and from room/restroom today without difficulty; Fall precautions in place, Seziure precautions in place; will continue to monitior patient for safety and behaviors.
--- NOTE | 2021-04-16 15:35 | NUR ---
HUNTER recieved a phone call from Estephania at [facility]. Estephania informed they would accept the Pt. Discharge was set up for 04/26/2021 @ 9:30am. [facility] and [facility] be [facility] for [facility] Pt. HUNTER will follow up
[2021-04-16 19:27] VITALS: BP 113/73
--- NOTE | 2021-04-17 05:42 | NUR ---
Assumed care of pt at 1900. Pt calm et cooperative with pleasant demeanor this shift. Took medications crushed in pudding without difficulty. Ambulates with assistance of lazaro-chair. VSWNL. Health assessment with no abnormalities noted at present time. Unable to assess SI/HI due to cognitive deficit but does not demonstrate any symptoms of acute emotional distress at present time. Currently resting in bed with eyes closed. Will continue to monitor per unit protocol.
[2021-04-17 09:29] VITALS: BP 103/65
--- NOTE | 2021-04-17 11:04 | NUR ---
04-17-2021--1100--Call to patient's to assure she had heard the news that the other social insurance administrator, Rolanda, had found a facility for the patient. She stated she had and was very happy. Inquired aout the paperwork from the [place] that was sent to us for her to fill out and asked if she still required this since a placement had been found. She stated she didn't need the paperwork. It was put in the shred box.
--- NOTE | 2021-04-17 12:54 | NUR ---
Alert and orientated to name only. Smiling, no speech or behavior suggestive of SI/HI. Resistant to getting out of bed requiring 2 staff. Breath sounds clear. Reg HR auscultated. Color pale pink with brisk capillary refill and palpable peripheral pulses. Incontinent of large amt yellow urine. Active bowel sounds over soft, rounded abdomen. Passing flatulence. Ambulates with supervision with slow, steady gait. [place] patch on back of L leg. Skin dry, room temp and nontender.
[2021-04-17 20:04] VITALS: BP 118/77
--- NOTE | 2021-04-18 06:43 | NUR ---
Assumed care of pt at 1900. Pt calm et cooperative with pleasant demeanor. Took medications crushed in pudding without difficulty. PRN pain medication given for agitated behavior indicative of pain along with facial grimacing. Ambulates with assistance of lazaro-chair. VSWNL. Health assessment with no abnormalities noted at present time. Unable to assess SI/HI due to cognitive deficit but pt does not demonstrate any symptoms of acute emotional distress at present time. Currently resting in bed with eyes closed. Will continue to monitor per unit protocol.
[2021-04-18 09:56] VITALS: BP 99/74
--- NOTE | 2021-04-18 19:34 | NUR ---
Patient care resummed; Patient up and in the dayroom resting in GeriChair; Patient is Disoriented*4; Lung sounds clear bilaterally, unlabored; Abdomen soft, nondistended with bowel sounds present*4; Patient had LgBM today, Incontinent of Bladder*4-Bladder scan not indicated; Medication/Meal compliant; Unable to Assess SI/HI/AVH, depression, Anxiety; Pain evaluated by FACES scale with Narco given per MAR orders; Patient has been calm, pleasent and cooperative with staff today, Ambulates too and from restroom with standby assist; Fall precautions in place, will continue to monitior for safety and behaviors;
[2021-04-18 19:54] VITALS: BP 90/67
[2021-04-18 20:00] VITALS: BP 137/86
--- NOTE | 2021-04-19 03:35 | NUR ---
PATIENT SAT UP IN MACI CHAIR AT A TABLE IN THE DINING ROOM. HE WAS SLEEPING MOST OF EVENING. HE WAS ABLE TO AWAKE ENOUGH TO TAKE HIS HS MEDS IN APPLESAUCE AND SWALLOWED WELL. HE DID DRINK SOME WATER. PATIENT WAS ASSISTED TO BED AND INCONTINENCE CARES DONE. TOOK 4 PEOPLE TO ASSIST PATIENT TO BED D/T PT WAS TIRED AND HEAVY TO MOVE. HE TENSES UP AT TIMES AND IS DIFFICULT TO MOVE. PATIENT IS SLEEPING IN BED. NO INDICATION OF PAIN, SI/HI/AVH. PATIENT NOT SPOKEN A WORD TONIGHT. PT RESTING WITH EVEN AND UNLABORED BREATHS. BED IN LOW POSITION AND BED ALARM IS ON. ROUTINE ROUNDS TO ASSESS SAFETY AND STATUS OF PATIENT.
[2021-04-19 10:50] VITALS: BP 116/97
--- NOTE | 2021-04-19 11:02 | NUR ---
Followup: remains on SBH. Requires feed assist and eating 50-100% most meals. +BMs. New wt obtained, can r/o 188 lb prior wt but pt wt is down about 10 lb from past wts 217-221 lb. On regular diet, and will add ensure pudding bid. Presents low nutrition risk with appropriate nutrition interventions in place
--- NOTE | 2021-04-19 12:10 | NUR ---
RT Progress Note- No change in participation in milieu/recreation therapy groups since previous review. Continues to respond to music groups, 1;1 music, and tactile stimulation toys.
[2021-04-19 13:56] VITALS: BP 102/81
--- NOTE | 2021-04-19 17:43 | NUR ---
Assumed pt care this morning from overnight shift. Client was in activity area sitting in gerichair at this time. Client presented as restless and pleasant, with a notable grimace on his face and legs moving and fidgeting frequently. Client was given prn hydrocodone for this, and was given his scheduled lidocaine patch as well as scheduled mood medication to help with this as client was unable to verbalize if he had depression and anxiety. After administration of medication, client calmed significantly. Client was noted to talk to the air and to grab at imaginary objects. No suicidal or homicidal behaviors noted at this time. Client given prn hydrocodone again at 1400, as client exhibited same restlessness and grimace. Restlessness decreased after this administration. Client last BM was 04/19, and client urinated in brief at this time. No catheterization done as a result of this. Client bowel sounds were present. Lung sounds clear. Client BP too low for blood pressure medication. Rechecked twice and remained too low for administration. Possible discharge of client to [facility] 04/21. No further concerns at this time.
[2021-04-19 20:00] VITALS: BP 108/60
[2021-04-19 20:25] VITALS: BP 108/60
--- NOTE | 2021-04-20 01:48 | NUR ---
PATIENT CARE WAS RESUMED AT 1900. HE WAS SITTING IN MACI-CHAIR IN THE DINING AREA. AWAKE AND ROCKING HIMSELF ON THE CHAIR. HE IS INCONTINENT OF BOWEL AND BLADDER. LUNGS ARE CLEAR BS ACTIVE X4 QUAD. HE TOOK HIS MEDS CRUSHED IN APPLE SAUCE. UNABLE TO VERABLIZE CONCERNS. NO SI/AVH/HI NOTED. YELLOW TOP AND SOCKS ARE ON. BED IS LOW, LOCKED AND ALARMED. HE IS A MAX ASSIT WITH CARE AND WILLAM CARE PROVIDED. REPOSITION Q2 HOURS AND PRN. Q12 MINUTES CHECK IS ONGOING.
--- NOTE | 2021-04-20 07:16 | NUR ---
04-20-2021--Patient is DC'ing at 10 AM on 04-22. DA 124C completed. Code number is [id number] Will make sure the Discharge is completed.
[2021-04-20 11:05] VITALS: BP 115/46
--- NOTE | 2021-04-20 18:38 | NUR ---
Patient care resummed; patient sitting in the dayroom in a gerichair, resting comfortably; Patient is Disoriented*4, alert, pleasent; Medication/Meal compliant; Patient ambulated*4 times today with staff; Lung sounds clear bilaterally, unlabored; Abdomen soft, nondistended with bowel sounds present*4; Patient had a Large formed BM today; Patient unable to answer SI/HI/AVH, Pain, Depression, and Anxiety assessment; although METAL MOCKUP MAKER did not witness any S/O distress; Fall precautions in place, will continue to monitior patient for safety and behaviors,
[2021-04-20 19:55] VITALS: BP 108/73
[2021-04-20 20:26] VITALS: BP 108/73
--- NOTE | 2021-04-21 02:21 | NUR ---
ASSUMED CARE ON 04/20/21 @ 1900, SEATED IN A MACI CHAIR RECLINING. A&OX1 RESPONDS TO HIS NAME, BUT WILL NOT SPEAK HIS NAME, ESPECIALLY HIS NICKNAME, RICHARD. DISORIENTED X3 TO ALL MEASURES, PLEASANT AFFECT NOTED, COOPERATIVE WITH ASSESSMENT AND MEDICATION ADMINISTRATION, TAKING MEDS CRUSHED IN PUDDING. PRN NORCO 5/325 PROVIDED FOR CHRONIC BACK PAIN. BM ON 04/20, ABD N BS X4Q. HRRR S1S2 NOTED, RESPIRATIONS CLEAR BILAT. RETIRED TO BED @ HS, AMBULATES FROM DAY ROOM TO BEDROOM WITH X1-2 ASSIST. BED IN LOW POSITION, BED ALARM SET, WILL CONTINUE TO MONITOR FOR HIGH FALL RISK. Q 12 MINUTE ROUNDING FOLLOWED PER UNIT PROTOCOL.
[2021-04-21 08:51] VITALS: BP 136/83
[2021-04-21 09:05] VITALS: BP 136/83
[2021-04-21 09:06] VITALS: BP 136/83
[2021-04-21] MEDS ORDERED: FLOMAX0.4 MG PO (09:07)
[2021-04-21] MEDS ORDERED: CARDIZEM CD120 MG PO (09:08)
[2021-04-21] MEDS ORDERED: ADULT LOW DOSE81 MG PO (09:09)
[2021-04-21] MEDS ORDERED: NEURONTIN 300M300 M2 PO (09:10)
[2021-04-21] MEDS ORDERED: VIMPAT10 MG/1 ML PO (09:13)
[2021-04-21] MEDS ORDERED: LEVETIRACE100 MG/1 M PO (09:14)
[2021-04-21] MEDS ORDERED: SEROQUEL 25 MG25 M1 PO ×2 (09:14→09:15)
[2021-04-21] MEDS ORDERED: VITAMIN D325 MC2 PO (09:16)
[2021-04-21] MEDS ORDERED: STIMULANT LAXA1 EACH PO (09:16)
--- NOTE | 2021-04-21 09:30 | NUR ---
Patient care resummed; patient located in the dayroom in [facility] resting comfortably at the table with staff; Patient is Alert to Self only, is able to understand his name but cannot verbalize his name; Yes/No questions preferred; Patient ambulates to and from the restroom with a StandyBy assist; Meal/Medication compliant; Lung sounds clear bilaterally, unlabored; Abdomen soft, nondistended; LBM:04/20; Patient incontinant this morning*2; Bottom and Groin area presents with reddness, cream applied; Patient unable to verbalize SI/HI/AVH, Anxiety, Depression, Pain; Non-Verbal assessment completed, Hydrocodone 10mg/325mg given @0911 for pain management due to increase in restlessness and patient is being discharged at @0930 to [facility] via ambulance; Will continue to monitior patient for safety and behaviors; Fall precations in place;
--- NOTE | 2021-04-21 09:42 | NUR ---
Patient D/C summary completed; Education recieved; D/C packet completed; Belongings gathered from patient locker and patient room; Report given to facility from RN; Morning medications given; Bed Bath given to patient; Fall precautions in place; will continue to monitior patient for safety and behaviors;
[2021-04-21 11:08] VITALS: BP 136/83
--- NOTE | 2021-04-21 12:18 | NUR ---
04-21-2021--0945--Attended team meeting this date. Patient is discharging this date. Ambulance didn't arrive at 10 as planned. (DC arranged the transportation) Rolanda called Brionna (a DC contact lens fitter for patient.) Brionna to notify ambulance company
--- NOTE | 2021-04-21 17:04 | NUR ---
HUNTER contacted Brionna Mcgow[employer] HUNTER, concerning the ambulance transportation. Brionna informed that she made a mistake and scheduled the transport for 04/22. Brionna stated she would call [facility] concerning the matter. HUNTER did inform nursing staff and Dr. Sage of the matter. Discharge rescheduled to 04/22/2021 @ 1330.
--- NOTE | 2021-04-22 04:26 | NUR ---
PATIENT CARE WAS RESUMED AT 1900. HE WAS AWAKE AND CONFUSSED SITTING IN THE DININING AREA. LUNGS ARE CLEAR BS ATIVE X4 QUAD. LUNGS ARE CLEAR, BS ACTIVE X4 QUAD.HE TOOK HIS MEDS CRUSHED.NO SIGN OF SI/AVH/HI NOTED.HE IS INCONTIENT OF OF BOWEL AND BLADDER. MAX ASSIT WITH CARE AND WILLAM CARE WAS PROVIDED AND CREAME IS APPLIED TO THE WILLAM AREA. HE AMBULATES WITH MACI-CHAIR. BED IS LOW, LOCKED ABD ALARMED.
[2021-04-22 08:22] VITALS: BP 136/83
--- NOTE | 2021-04-22 10:19 | NUR ---
REPORT CALLED TO [facility] ON [id number] THIS AM-NO CHANGES REQUIRED. DISCHARGED VIA CART ACCOMPNIED BY [facility] AND IN NO ACUTE DISTRESS AT THE TIME OF DISCHARGE.
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
== END 2021-04-22 10:28 | DRG 884 ==
LOC: SBH 13:09
PROVIDERS: Hospitalist; Internal Medicine; Nurse Practitioner Psychiatric/Mental Health; ADMIT Psychiatry & Neurology Psychiatry; ATTEND Psychiatry & Neurology Psychiatry
DX: F03.91 Unspecified dementia, unspecified severity, with behavioral disturbance (principal); F01.51 Vascular dementia, unspecified severity, with behavioral disturbance; N39.0 Urinary tract infection, site not specified; R65.10 Systemic inflammatory response syndrome (SIRS) of non-infectious origin without acute organ dysfunction; K59.00 Constipation, unspecified; G40.909 Epilepsy, unspecified, not intractable, without status epilepticus; F32.9 Major depressive disorder, single episode, unspecified; Z20.822 Contact with and (suspected) exposure to COVID-19; S06.9X0A Unspecified intracranial injury without loss of consciousness, initial encounter; F41.9 Anxiety disorder, unspecified; E78.5 Hyperlipidemia, unspecified; N40.1 Benign prostatic hyperplasia with lower urinary tract symptoms; M19.90 Unspecified osteoarthritis, unspecified site; F03.90 Unspecified dementia, unspecified severity, without behavioral disturbance, psychotic disturbance, mood disturbance, and anxiety; G47.00 Insomnia, unspecified; F29 Unspecified psychosis not due to a substance or known physiological condition; M17.0 Bilateral primary osteoarthritis of knee; Z66 Do not resuscitate; F43.10 Post-traumatic stress disorder, unspecified; B96.4 Proteus (mirabilis) (morganii) as the cause of diseases classified elsewhere; R33.8 Other retention of urine; E66.01 Morbid (severe) obesity due to excess calories; F41.1 Generalized anxiety disorder; G89.4 Chronic pain syndrome; Z68.32 Body mass index [BMI] 32.0-32.9, adult; Z86.16 Personal history of COVID-19; Z79.82 Long term (current) use of aspirin; Z79.899 Other long term (current) drug therapy; Z79.891 Long term (current) use of opiate analgesic; X58.XXXA Exposure to other specified factors, initial encounter; Y93.89 Activity, other specified; Y92.89 Other specified places as the place of occurrence of the external cause; Y99.8 Other external cause status
CPT/HCPCS: 10880